=== PATIENT | female | born 1985 | race Caucasian/White ===

== ENCOUNTER 2019-06-18 11:40 | Day surgery (SDC) | payer BC, SELFPAY ==
[2019-06-18] VITALS (9 sets, daily range): BP systolic 107–150; BP diastolic 65–93; PULSE 57–105; RESP 14–26; TEMP 36.3–36.7; O2SAT 93–99; BMI 33.3
--- NOTE | ~2019-06-18 | US_ITS ---
EXAMINATION: US OB <= 14 weeks fetus EXAM DATE: 06/18/2019 13:48 INDICATION: , vaginal bleeding. First trimester. TECHNIQUE: Pelvic obstetrical transabdominal sonogram was performed by a technologist. There are mu ltiple grayscale and Doppler images available for interpretation. There are no earlier studies of th is gestation for comparison. FINDINGS: Uterus measures 8.9 x 5.5 x 6.1 cm and is retroverted with endometrium measuring 5-10 mm in thickness depending on location of measurement. There is small cystic region in the lower uterine se gment, possible gestation sac, with hypoechoic adjacent region which could be subchorionic hemorrhage . No yolk sac or pole was confirmed. Poor prognostic indicators for this . The ovaries are morphologically normal. IMPRESSION: Lower uterine segment small anechoic region and adjacent hypoechoic region could be gest ation sac, subchorionic hemorrhage respectively. Poor prognostic indicators for this . Consi zaire follow-up beta hCG levels or ultrasound as indicated clinically. Reviewed, dictated and finalized at location A. [facility] IMPRESSION: Lower uterine segment small anechoic region and adjacent hypoechoi c region could be gestation sac, subchorionic hemorrhage respectively. Poor pro gnostic indicators for this . Consider follow-up beta hCG levels or ul trasound as indicated clinically.
[2019-06-18 12:06] LABS: Basophils Absolute Auto 0.1 K/mm3 (0.0-0.1); Basophils Percent Auto 0.6 % (0.2-1.2); Eosinophils Absolute Auto 0.1 K/mm3 (0-0.3); Eosinophils Percent Auto 1.1 % (0-4.4); Hematocrit 42.5 % (37.0-47.0); Hemoglobin 14.3 g/dL (12.0-15.0); Immature Granulocyte Absolute 0.04 K/mm3 (0.00-0.031); Immature Granulocyte Percent A 0.4 % (0-0.5); Lymphocytes Absolute Auto 3.11 K/mm3 (0.9-3.2); Lymphocytes Percent Auto 28.7 % (18.3-44.2); Mean Corpuscular HGB Conc 33.6 g/dl (32-36); Mean Corpuscular Hemoglobin 32.4 pg (26-34); Mean Corpuscular Volume 96.4 fl (80-100); Mean Platelet Volume 10.2 fl (7.4-10.4); Monocytes Absolute Auto 0.6 K/mm3 (0.1-0.6); Monocytes Percent Auto 5.9 % (2.6-8.5); Neutrophils Absolute Auto 6.9 K/mm3 (1.3-6.7); Neutrophils Percent Auto 63.3 % (45.5-73.1); Platelet Count Result 269 k/mm3 (150-375); Red Blood Count 4.41 M/mm3 (4.2-5.4); Red Cell Distribution Width 13.2 % (11.5-14.5); White Blood Count 10.8 K/mm3 (4.5-10.0)
--- NOTE | 2019-06-18 12:46 | ED.FEMALEGU ---
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 She states that she has had a prior miscarriage and believes she is having another one. She reports that she followed up with her [employer]ISTANT MANA[employer] MANAG[employer] today, Dr. Akers, who sent her here because they believe that she needs a D&C. She notes associated intermittent suprapubic cramping ABD pain and dizziness. She also notes that she had a + at home test 3 days ago and another + test at the [employer]'s today. She denies any N/V/D, fevers, chills, SOB, or CP. MD elicited complaint: vaginal bleeding (heavy with large clots) Pertinent past history: prior miscarriages Onset (ago): day(s) (2) Location of symptoms: vaginal Female Urogenital Radiation: Suprapubic Quality of pain: cramping Consistency: intermittent Vaginal bleeding: heavy and clots (large) Associated symptoms: abdominal pain (intermittent suprapubic cramping) and other (dizziness) Patient : Yes Possible : at home test positive Related Data : 4 Para: 2 Total number of abortions (spontaneous and elective): 1 Allergies Allergy/AdvReac Type Severity Reaction Status Date / Time No Known Allergies Allergy Unknown Unverified 09/02/18 17:29 Review of Systems Review of Systems: All systems reviewed & are unremarkable except as noted in HPI and below Constitutional: Constitutional: Denies chills and Denies fever(s) Cardiovascular: Cardiovascular: Denies chest pain Respiratory: Respiratory: Denies dyspnea Gastrointestinal: Gastrointestinal: Reports abdominal pain (intermittent suprapubic cramping), Denies diarrhea, Denies nausea and Denies vomiting Genitourinary: Genitourinary: Reports abnormal vaginal bleeding (heavy with large clots) Neurologic: Reports dizziness PMFSH Past Medical History Medical History (Updated 06/18/19 @ 15:13 by Kiersten Upton MD) History of miscarriage MS (multiple sclerosis) Surgical History Surgical History (Updated 06/18/19 @ 13:26 by Wu Olivares) History of cholecystectomy Social History Social History (Updated 06/18/19 @ 13:27 by Wu Olivares) Smoking packs per day: 1 Smoking cigarettes per day: 20.0 Smoking status: Current every day smoker Tobacco type: cigarettes Comments PCP: PEDRO Macias. Exam Const: General: cooperative, no acute distress and alert Nutritional Appearance: well nourished Orientation/consciousness: patient oriented x3 Limitations: no limitations HENMT: Mouth: Yes lip normal and Yes moist mucous membranes Resp: Effort & Inspection: normal respiratory effort Auscultation: clear to auscultation bilaterally Cardio: Rate: regular rate Rhythm: regular rhythm GI: GI Palp: Yes Soft to palpation and Yes Tenderness to palpation present (GI) (LLQ and rt mid) Auscultation: normal bowel sounds : Speculum Exam - Vagina: vaginal bleeding (With small clots) and No tissue present in vagina Speculum Exam - Cervix: Cervical os open (With small clot present) Skin: General skin exam: normal color Neuro: General: patient oriented x3 Cognition (Neuro): normal cognition Speech: normal speech Extrem: General: normal to inspection, full ROM and no clubbing, cyanosis or edema Psych: Mental Status: mental status grossly normal Affect: normal affect Attitude: cooperative Course Course Emergency Course: Patient presents with findings consistent with incomplete spontaneous . Patient hemodynamically stable without significant hemorrhaging noted in the emergency department. Patient reportedly had heavier bleeding at [employer]ISTORY [employer]ACULTY MEMBER office. HISTORY FACULTY MEMBER did evaluate
--- NOTE | 2019-06-18 15:06 | PM.IMHP ---
H&P: HPI History of Present Illness Chief complaint: incomplete misscarriage, vaginal bleeding Narrative: Jessica Nova is a 34 year old female initially presented to the clinic with positive test and vaginal bleeding for 3 days. She was examined in clinic and cervix was noted to be dilated with blood cots and tissue within the vaginal vault. She was sent to the ER for further evaluation. Review of Systems Constitutional: Constitutional: Denies chills, Denies fatigue and Denies weakness Cardiovascular: Cardiovascular: Denies chest pain and Denies palpitations Respiratory: Respiratory: Denies dyspnea and Denies dyspnea on exertion Gastrointestinal: Gastrointestinal: Denies abdominal pain Genitourinary: Comments: vaginal bleeding Neurologic: Denies confusion, Denies headache(s) and Denies numbness Psychiatric: Psychiatric: Reports no additional psychiatric complaints [facility] Past Medical History Medical History (Updated 06/18/19 @ 15:11 by Maddie Carr DO) History of miscarriage MS (multiple sclerosis) Surgical History Surgical History (Updated 06/18/19 @ 13:26 by Wu Olivares) History of cholecystectomy Social History Social History (Updated 06/18/19 @ 13:27 by Wu Olivares) Smoking packs per day: 1 Smoking cigarettes per day: 20.0 Smoking status: Current every day smoker Tobacco type: cigarettes Meds Home Medications and Allergies Allergies Allergy/AdvReac Type Severity Reaction Status Date / Time No Known Allergies Allergy Unknown Unverified 09/02/18 17:29 Vital Signs Vital Signs - 24 hr 06/18/19 11:48 06/18/19 13:53 06/18/19 13:55 Temperature 36.7 C Pulse Rate 70 58 L 70 Respiratory Rate 16 Blood Pressure 150/91 H 128/78 119/82 Pulse Oximetry 99 Exam Const: General: comfortable; No no acute distress or in distress Resp: Effort & Inspection: normal respiratory effort Auscultation: clear to auscultation bilaterally Cardio: Rate: regular rate Rhythm: regular rhythm GI: Inspection: non-distended GI Palp: Yes Soft to palpation and No Tenderness to palpation present (GI) : Other: cervix dilated Neuro: Speech: normal speech Psych: Mental Status: mental status grossly normal Affect: normal affect H&P: Results Labs Labs: Short CBC 06/18/19 Range/Units 11:53 WBC 10.8 H (4.5-10.0) K/mm3 Hgb 14.3 (12.0-15.0) g/dL Hct 42.5 (37.0-47.0) % Plt Count 269 (150-375) k/mm3 Imaging US pelvis: Radiologist's impression: FINDINGS: Uterus measures 8.9 x 5.5 x 6.1 cm and is retroverted with endometrium measuring 5-10 mm in thickness depending on location of measurement. There is small cystic region in the lower uterine segment, possible gestation sac, with hypoechoic adjacent region which could be subchorionic hemorrhage. No yolk sac or pole was confirmed. Poor prognostic indicators for this . The ovaries are morphologically normal. IMPRESSION: Lower uterine segment small anechoic region and adjacent hypoechoic region could be gestation sac, subchorionic hemorrhage respectively. Poor prognostic indicators for this . Consider follow-up beta hCG levels or ultrasound as indicated clinically. Assessment and Plan Assessment and plan (1) Incomplete miscarriage: Code(s): O03.4 - Incomplete spontaneous without complication Status: Acute Assessment and Plan: To OR for Suction D&C Risks, benefits, alternatives discussed. Patient would like to proceed with procedure.
--- NOTE | 2019-06-18 15:17 | PC.NURSE ---
to pre-op area via wheelchair. vitals stable. no active vaginal bleeding. valuables given to pt
--- NOTE | 2019-06-18 15:25 | WPDANESEPPF ---
Anes - Initial Pre Proc Eval Procedure: Operation Date: 06/18/19 15:30 Proposed Procedures p SUCTION DILITATION AND CURETTAGE - Maddie Carr DO Date/Time: 06/18/19 15:25 Surgeon: Maddie Carr DO Pre Op Diagnosis: incomplete misscarriage, vaginal bleeding Patient Data Age: 34 Gender: F Height: 5 ft 4 in Weight: 88 kg Last Vital Signs Temp 36.7 C 06/18/19 11:48 Pulse 70 06/18/19 13:55 Resp 16 06/18/19 11:48 BP 119/82 06/18/19 13:55 Pulse Ox 99 06/18/19 11:48 Allergies Allergy/AdvReac Type Severity Reaction Status Date / Time No Known Allergies Allergy Unknown Unverified 09/02/18 17:29 Laboratory Tests 06/18/19 06/18/19 06/18/19 11:53 11:53 11:53 WBC 10.8 K/mm3 H K/mm3 (4.5-10.0) RBC 4.41 M/mm3 M/mm3 (4.2-5.4) Hgb 14.3 g/dL g/dL (12.0-15.0) Hct 42.5 % % (37.0-47.0) MCV 96.4 fl fl (80-100) MCH 32.4 pg pg (26-34) MCHC 33.6 g/dl g/dl (32-36) RDW 13.2 % % (11.5-14.5) Plt Count 269 k/mm3 k/mm3 (150-375) MPV 10.2 fl fl (7.4-10.4) Immature Gran % (Auto) 0.4 % % (0-0.5) Neut % (Auto) 63.3 % % (45.5-73.1) Lymph % (Auto) 28.7 % % (18.3-44.2) [place] % (Auto) 5.9 % % (2.6-8.5) Eos % (Auto) 1.1 % % (0-4.4) Baso % (Auto) 0.6 % % (0.2-1.2) Lymph # (Auto) 3.11 K/mm3 K/mm3 (0.9-3.2) [place] # (Auto) 0.6 K/mm3 K/mm3 (0.1-0.6) Eos # (Auto) 0.1 K/mm3 K/mm3 (0-0.3) Baso # (Auto) 0.1 K/mm3 K/mm3 (0.0-0.1) Abs Immat Gran (auto) 0.04 K/mm3 H K/mm3 (0.00-0.031) Absolute Neuts (auto) 6.9 K/mm3 H K/mm3 (1.3-6.7) Absolute Nucleated RBC 0.0 K/mm3 K/mm3 (0.0-0.012) Nucleated RBC % 0.0 % % (0.0-0.2) Beta HCG, Quant 2010.10 mIU/ML mIU/ML Blood Type A Positive Doses of RhIg Required 0 Patient hx anesthesia problems: none Family hx anesthesia problems: none [facility] Past Medical History Medical History History of miscarriage MS (multiple sclerosis) Surgical History Surgical History History of cholecystectomy Social History Social History Smoking packs per day: 1 Smoking cigarettes per day: 20.0 Smoking status: Current every day smoker Tobacco type: cigarettes Anes - Eval Final PreProcedure Day of Procedure 06/18/19 15:25 Patient weight: obese Heart: regular rate and rhythm Lungs: clear to auscultation Airway: Mallampati scale class 1 Neurological: alert and oriented Last oral intake: 6 hours ASA classification: II Emergent: yes Anesthetic plan: proceed Anesthesia type and monitoring: general ETT and standard monitoring Informed Consent: The patient's anesthetic plan and its attendant risks and benefits were discussed with the patient/family/POA. Questions were solicited and answers provided to the satisfaction of the patient/family/POA.
[2019-06-18] MEDS: LACTATED RINGERS 1,000 ML 30 ML IV CONT (15:30)
--- NOTE | 2019-06-18 15:46 | SUR.PREOP ---
1540; [employer] CAPTAIN CALLED DR ESQUIVEL. VERBAL ORDER FOR CONSENT GIVEN.
--- NOTE | 2019-06-18 18:42 | OP_ITS ---
DATE OF PROCEDURE: 06/18/2019 PROCEDURE: Suction dilation and curettage. PREOPERATIVE DIAGNOSIS: Incomplete . POSTOPERATIVE DIAGNOSIS: Incomplete . ANESTHESIA: General sedation. ESTIMATED BLOOD LOSS: 50 mL. SPECIMEN: Retained products of conception. FINDINGS: Open cervix and products of conception. INDICATION FOR PROCEDURE: A 34-year-old with newly positive test, initially presented to the clinic with complaints of vaginal bleeding, passing clots on exam in the clinic. In the vaginal wall, there were noted to be blood clots, bleeding as well as some tissue. At this point, the patient was transferred to the ER for further evaluation. Ultrasound showed retained products at the lower uterine segment on exam. Cervix was noted to be dilated. At this point, risks, benefits, and alternatives discussed with the patient. Decision made to proceed with procedure. DESCRIPTION OF PROCEDURE: The patient was moved to the OR, where she was moved to the OR table. After adequate anesthesia was established, the patient was placed in Pee stirrups for support. The patient's vagina was prepped using Betadine and the patient was draped in the usual sterile fashion. A time-out was performed to identify the correct patient and procedure. Speculum was inserted into the vagina. Blood clots were noted and tissue protruding from the dilated cervical os. The uterus was sounded to 8 cm. A #10 suction curette was introduced into the uterine cavity. Suction device was turned on. Several passes of the suction curettage were performed until the uterus was found to be empty. At this point, good hemostasis was noted. Single-tooth tenaculum was removed. All instrumentation was removed from the vagina. The patient tolerated the procedure well, was transferred to the recovery room in stable condition. D I [facility]
== END 2019-06-18 17:35 | disposition home or self-care (01) ==
LOC: ANHED 12:41 → ANHSURGERY 14:59
PROVIDERS: Emergency Provider Emergency Medicine; PCP Physician Assistant; Visit Provider Obstetrics & Gynecology
PROC: (CPT 59812; principal; 2019-06-18 15:30)
DX: O03.4 Incomplete spontaneous abortion without complication (principal); G35 Multiple sclerosis; F17.210 Nicotine dependence, cigarettes, uncomplicated
CPT/HCPCS: 59812; 36415; 76801; 84702; 85025; 86900; 86901; 88305; 99285; A9270; J0330; J1100; J2250; J2405; J2704; J3010; J7120

== ENCOUNTER 2019-06-29 13:38 | Emergency (ER) | payer BC, SELFPAY ==
--- NOTE | 2019-06-29 13:51 | ED.URI ---
HPI - URI/Sore Throat General Chief Complaint: Upper Respiratory Infection Stated Complaint: can't take a full breath Time Seen by Provider: 06/29/19 13:51 Source: patient and RN notes reviewed Related Data Allergies Allergy/AdvReac Type Severity Reaction Status Date / Time No Known Allergies Allergy Unknown Verified 06/18/19 15:45 Review of Systems Review of Systems: Narrative: CONSTITUTIONAL: Denies fever, chills, or sweats. EYES: Denies visual changes, redness, or discharge. ENT: Denies rhinorrhea, congestion, sore throat, or otalgia. CARDIOVASCULAR: Denies chest pain, palpitations, or edema. RESPIRATORY: Denies cough or dyspnea. GASTROINTESTINAL: Denies abdominal pain, nausea, vomiting, or diarrhea. GENITOURINARY: Denies dysuria or hematuria. SKIN: Denies rash or itching. MUSCULOSKELETAL: Denies back pain, joint pain, or myalgia. NEUROLOGIC: Denies headache, numbness, or weakness. All other systems reviewed are negative, except as documented in HPI. PMFSH Social History Social History Smoking packs per day: 1 Smoking cigarettes per day: 20.0 Smoking status: Current every day smoker Tobacco type: cigarettes Comments At the time of my signature, I reviewed and agree with the nursing past medical, surgical, social, and family history. There is no relevant family history pertinent to the patient complaint. Exam Narrative: Exam Narrative: GENERAL: This is a well-nourished, well-developed patient, in no apparent distress. HEAD: normocephalic, atraumatic. EYES: PERRL. Sclera clear/white. Vision is grossly intact. EARS: External ears normal, auditory canals clear and without drainage, TMs normal without perforation. Hearing grossly intact. NOSE: External nose normal with no obvious nasal discharge, nares without redness, no rhinorrhea. THROAT: Mucous membranes moist, posterior pharynx clear. NECK: Neck supple, non-tender without lymphadenopathy, masses or thyromegaly. CARDIOVASCULAR: Regular rate and rhythm without murmurs, gallops, or rubs. RESPIRATORY: Clear to auscultation. Breath sounds equal bilaterally. No wheezes, rales, or rhonchi. SKIN: warm, intact with no suspicious lesions or rash, good texture and turgor. NEURO: awake, alert, and oriented to person, place and time. There were no obvious focal neurologic abnormalities. EXTREMITIES: No clubbing, cyanosis, or edema. MDM - URI/Sore Throat Differential Diagnosis Differential diagnosis: Likely upper respiratory infection, otitis media, sinusitis, viral infection, bronchitis, influenza and pharyngitis Critical Care Time Critical Care Time Critical Care Time: No Discharge Plan Discharge Prescriptions: No Action ibuprofen 800 mg tablet 800 mg PO TID PRN (Reason: pain) Qty: 60 RF: 0 doxycycline hyclate 100 mg capsule 100 mg PO BID 7 Days Qty: 14 RF: 0
== END 2019-06-29 14:00 | disposition left against medical advice (07) ==
LOC: EXPBETH 13:46
PROVIDERS: Emergency Provider Nurse Practitioner Family
DX: Z53.21 Procedure and treatment not carried out due to patient leaving prior to being seen by health care provider (principal)
CPT/HCPCS: 99199

== ENCOUNTER 2019-06-29 14:24 | Emergency (ER) | payer BC, SELFPAY ==
--- NOTE | ~2019-06-29 | US_ITS ---
EXAMINATION: US venous doppler [facility] DATE: 06/29/2019 16:00 INDICATION: Lower limb swelling. TECHNIQUE: Grayscale ultrasound images without and with compression and Doppler ultrasound images of the bilateral lower extremity veins were obtained. COMPARISON: None. FINDINGS: The visualized portions of right common femoral vein, profunda (deep) femoral vein, femoral vein, pop liteal vein, peroneal veins, posterior tibial veins, and greater saphenous vein outflow are patent. The visualized portions of left common femoral vein, profunda femoral vein, femoral vein, popliteal v ein, peroneal veins, posterior tibial veins, and greater saphenous vein outflow are patent. IMPRESSION: 1. No deep venous thrombosis. Reviewed, dictated and finalized at location A. [employer]
--- NOTE | ~2019-06-29 | XR_ITS ---
EXAMINATION: XR chest 2V 06/29/2019 15:18 INDICATION: Chest pain after recent surgery PROCEDURE: 2 view chest COMPARISON: No prior studies for comparison. FINDINGS: The lungs are clear. The cardiomediastinal silhouette is within normal limits. There are no pleural effusions. There is no pneumothorax suspected. IMPRESSION: 1: NO ACUTE CARDIOPULMONARY DISEASE. Reviewed, dictated and finalized at location B. [employer]
[2019-06-29 14:28] VITALS: BP 167/74; PULSE 67; RESP 16; TEMP 36.8; O2SAT 100
--- NOTE | 2019-06-29 14:39 | ECG_ITS ---
Measurements Intervals [place] Rate: 65 P: 21 OR: 122 QRS: 28 QRSD: 126 T: -6 QT: 439 QTc: 458 Interpretive Statements SINUS RHYTHM WITH SINUS ARRHYTHMIA INTRAVENTRICULAR CONDUCTION DELAY DELAYED PRECORDIAL R/S TRANSITION BORDERLINE T WAVE ABNORMALITY- INFERIOR LEADS BASELINE ARTIFACT- II, III, V3-V4 BORDERLINE ECG Electronically Signed On 06-30-2019 9:24:55 WIRE DRAWING MACHINE TENDER by Abraham Javier D.O.
[2019-06-29 15:12] LABS: Basophils Absolute Auto 0.1 K/mm3 (0.0-0.1); Basophils Percent Auto 0.6 % (0.2-1.2); Eosinophils Absolute Auto 0.1 K/mm3 (0-0.3); Eosinophils Percent Auto 1.4 % (0-4.4); Hematocrit 35.6 % (37.0-47.0); Hemoglobin 11.8 g/dL (12.0-15.0); Immature Granulocyte Absolute 0.03 K/mm3 (0.00-0.031); Immature Granulocyte Percent A 0.4 % (0-0.5); Lymphocytes Absolute Auto 2.77 K/mm3 (0.9-3.2); Lymphocytes Percent Auto 32.9 % (18.3-44.2); Mean Corpuscular HGB Conc 33.1 g/dl (32-36); Mean Corpuscular Hemoglobin 32.7 pg (26-34); Mean Corpuscular Volume 98.6 fl (80-100); Mean Platelet Volume 10.3 fl (7.4-10.4); Monocytes Absolute Auto 0.6 K/mm3 (0.1-0.6); Monocytes Percent Auto 6.7 % (2.6-8.5); Neutrophils Absolute Auto 4.9 K/mm3 (1.3-6.7); Platelet Count Result 301 k/mm3 (150-375); Red Blood Count 3.61 M/mm3 (4.2-5.4); Red Cell Distribution Width 14.3 % (11.5-14.5); White Blood Count 8.4 K/mm3 (4.5-10.0)
[2019-06-29 15:23] LABS: Alanine Aminotransferase 19 U/L (4-35); Albumin Level 4.1 g/dL (3.5-5.1); Alkaline Phosphatase 83 U/L (38-126); Aspartate Amino Transferase 21 U/L (14-36); Bilirubin,Total 0.3 mg/dL (0.2-1.3); Blood Urea Nitrogen 12 mg/dL (7-17); Calcium 9.2 mg/dL (8.4-10.2); Carbon Dioxide 25 mmol/L (22-30); Chloride 105 mmol/L (98-107); Estimated CRCL calculation 69 ml/min; Estimated Glomerular Filt Rate 57; Glucose 91 mg/dL (65-105); INR 0.9; Potassium 3.6 mmol/L (3.4-5.0); Prothrombin Time 12.3 Seconds (11.1-14.7); Sodium 138 mmol/L (137-145)
[2019-06-29 15:24] LABS: Partial Thromboplastin Time 25.2 SECONDS (22.3-36.8)
--- NOTE | 2019-06-29 15:28 | ED.CHESTPAIN ---
HPI - Chest Pain General Chief Complaint: Chest Pain <Keyonna Burroughs PA-C - Last Filed: 06/29/19 19:00> Stated Complaint: Chest Pain/SOB <Keyonna Burroughs PA-C - Last Filed: 06/29/19 19:00> Time Seen by Provider: 06/29/19 14:36 <PEDRO Madrigal Last Filed: 06/29/19 19:00> Source: patient <Keyonna Burroughs PA-C - Last Filed: 06/29/19 19:00> Mode of arrival: ambulatory <PEDRO Madrigal Last Filed: 06/29/19 19:00> Limitations: no limitations <PEDRO Madrigal Last Filed: 06/29/19 19:00> History of Present Illness HPI narrative: This is a 34 year old female that presents to the ER for chest pain x 1.5 weeks. Reports she had a d/c on the of last month. Reports since she has been having intermittent chest pressure. Reports today the pain has been more constant. Reports the pain is substernal and on the right side of her chest. Also reports some pain in her RUQ. Reports she also had had some swelling in her bilateral lower extremities. Denies fever, cold symptoms, nausea, vomiting, or dysuria. <Keyonna Burroughs PA-C - Last Filed: 06/29/19 19:00> Related Data Allergies/Adverse Reactions: Allergies Allergy/AdvReac Type Severity Reaction Status Date / Time No Known Allergies Allergy Unknown Verified 06/29/19 14:39 <Keyonna Burroughs PA-C - Last Filed: 06/29/19 19:00> Review of Systems Review of Systems: Narrative: CONSTITUTIONAL: Denies fever ENT: Denies rhinorrhea, congestion, sore throat CARDIOVASCULAR: Reports chest pain, edema. RESPIRATORY: Denies cough or dyspnea. GASTROINTESTINAL: Reports abdominal pain. Denies nausea, vomiting, or diarrhea. GENITOURINARY: Denies dysuria or hematuria. <Keyonna Burroughs PA-C - Last Filed: 06/29/19 19:00> All systems reviewed & are unremarkable except as noted in HPI and below <PEDRO Madrigal Last Filed: 06/29/19 19:00> [facility] Social History Social History: Social History Smoking packs per day: 1 Smoking cigarettes per day: 20.0 Smoking status: Current every day smoker Tobacco type: cigarettes Gender identity (if verbalized by the patient): Female <Keyonna Burroughs PA-C - Last Filed: 06/29/19 19:00> Exam Narrative: Exam Narrative: GENERAL: Well-appearing, obese, and in no acute distress. HEAD: Normocephalic, atraumatic. EYES: EOMI. ENT: Nares clear, no rhinorrhea or epistaxis. Mucous membranes moist. Oropharynx without tonsillar hypertrophy exudate or other lesions. Bilateral TMs pearly dudley non-bulging NECK: Supple. No adenopathy or masses. CHEST: Clear to auscultation. No respiratory distress. No wheezes rales or rhonchi HEART: Regular rate and rhythm. No murmur heard. Normal peripheral pulses. ABDOMEN: Soft, nontender, nondistended, normal active bowel sounds. EXTREMITIES: Normal range of motion. No edema. SKIN: Warm, dry, no rash. NEURO: No focal deficits. Alert and oriented x3. PSYCH: Normal mood and affect <Keyonna Burroughs PA-C - Last Filed: 06/29/19 19:00> Course Consultations Consultation #1: Spoke with primary care doctor about patient work-up will follow-up in clinic <Keyonna Burroughs PA-C - Last Filed: 06/29/19 19:00> Date: 06/29/19 <PEDRO Madrigal Last Filed: 06/29/19 19:00> Time: 18:58 <PEDRO Madrigal Last Filed: 06/29/19 19:00> Vital Signs Vital signs: Vital Signs Temperature 36.8 C 06/29/19 14:28 Pulse Rate 67 06/29/19 14:28 Respiratory Rate 16 06/29/19 14:28 Blood Pressure 167/74 H 06/29/19 14:28 Pulse Oximetry 100 06/29/19 14:28 Temperature 36.8 C 06/29/19 14:28 Pulse Rate 80 06/29/19 18:33 Respiratory Rate 19 06/29/19 18:33 Blood Pressure 159/96 H 06/29/19 18:33 Pulse Oximetry 100 06/29/19 18:33 <Keyonna Burroughs PA-C - Last Filed: 06/29/19 19:00> Vital Signs Temperature 36.8 C 06/29/19 14:28 Pulse Rate 67
[2019-06-29 15:34] LABS: Troponin I < 0.012 ng/mL (0.000-0.034)
[2019-06-29 15:49] VITALS: BP 146/95; PULSE 68; RESP 18; O2SAT 100
[2019-06-29 15:50] VITALS: PULSE 60
[2019-06-29 16:42] LABS: D Dimer 0.29 ug/mL (<0.48)
[2019-06-29] MEDS: KETOROLAC 30 MG/ML VIAL (*BKC) IV PUSH (17:37)
[2019-06-29] MEDS: BELLADONNA ALK/PHENOB ELIX 10 ML, MAG HYDROX/ALUMINUM HYD/SIMETH 30 ML, LIDOCAINE HCL 2... PO (17:37)
[2019-06-29 18:22] LABS: Troponin I < 0.012 ng/mL (0.000-0.034)
[2019-06-29 18:33] VITALS: BP 159/96; PULSE 80; RESP 19; O2SAT 100
== END 2019-06-29 19:14 | disposition home or self-care (01) ==
PROVIDERS: Physician Assistant; Emergency Provider Emergency Medicine
DX: R07.9 Chest pain, unspecified (principal); F17.210 Nicotine dependence, cigarettes, uncomplicated
CPT/HCPCS: 36415; 71046; 80053; 81025; 84484; 85025; 85380; 85610; 85730; 93005; 93970; 96374; 99284; A9270; J1885

== ENCOUNTER 2020-04-06 06:54 | Outpatient (NON) | payer BC, SELFPAY ==
[2020-04-07 16:06] LABS: SARS-CoV-2 RNA PCR Positive
== END 2020-04-06 06:55 ==
LOC: ANHCOVIDDT 06:55
PROVIDERS: Visit Provider Physician Assistant
DX: U07.1 COVID-19 (principal)
CPT/HCPCS: 87635; C9803; U0003

== ENCOUNTER 2021-11-17 00:32 | Day surgery (SDC) | payer BC, SELFPAY ==
[2021-11-07 09:25] VITALS: BMI 36.3
[2021-11-17 06:56] VITALS: BP 141/79; PULSE 62; RESP 17; TEMP 36.6; O2SAT 100
[2021-11-17] MEDS: LACTATED RINGERS 1,000 ML 150 ML IV CONT (07:08)
--- NOTE | 2021-11-17 07:13 | PM.HPGS ---
History of Present Illness History of Present Illness Consent: Risks, benefits, and alternatives have been discussed and questions answered. Patient agrees to proceed with procedure. Chief complaint: bright red blood per rectum, fecal abnormalities Narrative: Jessica Nova is a 36 year old female Referred for investigation of rectal bleeding. She has seen blood in her stools for a couple of years. The bleeding is intermittent. At times the toilet bowl will be filled with blood. She believes that she has hemorrhoids. She does not have rectal pain or abdominal pain when she sees blood. Her stools are inconsistent. She will become constipated that will also have than or narrow soft stools. She does not usually eat breakfast. There is no family history of colon cancer or other colon diseases. Review of Systems Review of Systems: All systems reviewed & are unremarkable except as noted in HPI and below PMFSH Past Medical History Medical History History of miscarriage MS (multiple sclerosis) Surgical History Surgical History History of cholecystectomy Social History Social History Smoking packs per day: 1.5 Smoking cigarettes per day: 30.0 Years smoked: 20 Smoking pack-years: 30.00 Smoking status: Current every day smoker Tobacco type: cigarettes Alcohol intake: current Drinks per week: 6 Substance use: never Substance use type: does not use Living arrangements: with family Gender identity (if verbalized by the patient): Female Spiritual care concerns: No Meds Home Medications and Allergies Home Medications Medication Instructions Recorded Confirmed Type doxycycline hyclate 100 mg capsule 100 mg PO BID 7 days #14 caps 06/18/19 11/07/21 Rx ibuprofen 800 mg tablet 800 mg PO TID PRN pain #60 tabs 06/18/19 11/07/21 Rx hydrochlorothiazide 12.5 mg tablet 12.5 tablet PO DAILY 11/07/21 11/07/21 History Allergies Allergy/AdvReac Type Severity Reaction Status Date / Time No Known Allergies Allergy Unknown Verified 11/17/21 06:55 Vital Signs Vital Signs - 24 hr 11/17/21 06:56 Temperature 36.6 C Pulse Rate 62 Respiratory Rate 17 Blood Pressure 141/79 H Pulse Oximetry 100 Oxygen Delivery Room Air Exam Const: General: alert Orientation/consciousness: patient oriented x3 Resp: Auscultation: clear to auscultation bilaterally Cardio: Rhythm: regular rhythm GI: GI Palp: Yes Soft to palpation and No Tenderness to palpation present (GI) Neuro: General: patient oriented x3 Assessment and Plan Assessment and plan (1) Blood in stool: Code(s): K92.1 - Melena Status: Acute Assessment and Plan: Colonoscopy with possible biopsy or polypectomy or cautery or injection of substances.
--- NOTE | 2021-11-17 07:38 | WPDANESEPPF ---
Anes - Initial Pre Proc Eval Procedure: Operation Date: 11/17/21 08:00 Proposed Procedures p Colonoscopy - Matthew Baugh MD Date/Time: 11/17/21 07:38 Surgeon: Matthew Baugh MD Pre Op Diagnosis: bright red blood per rectum, fecal abnormalities Patient Data Age: 36 Gender: F Height: 1.6 m Weight: 91.4 kg Last Vital Signs Temp 36.6 C 11/17/21 06:56 Pulse 62 11/17/21 06:56 Resp 17 11/17/21 06:56 BP 141/79 H 11/17/21 06:56 Pulse Ox 100 11/17/21 06:56 O2 Del Method Room Air 11/17/21 06:56 Allergies Allergy/AdvReac Type Severity Reaction Status Date / Time No Known Allergies Allergy Unknown Verified 11/17/21 06:55 Home Medications Medication Instructions Recorded Confirmed Type doxycycline hyclate 100 mg capsule 100 mg PO BID 7 days #14 caps 06/18/19 11/07/21 Rx ibuprofen 800 mg tablet 800 mg PO TID PRN pain #60 tabs 06/18/19 11/07/21 Rx hydrochlorothiazide 12.5 mg tablet 12.5 tablet PO DAILY 11/07/21 11/07/21 History Patient hx anesthesia problems: none Family hx anesthesia problems: none Results Review: All pre-operative results and documents have been reviewed as part of the pre-operative evaluation. [facility] Past Medical History Medical History Anxiety Arthritis Hypertension MS (multiple sclerosis) Surgical History Surgical History History of cholecystectomy Social History Social History Smoking packs per day: 1.5 Smoking cigarettes per day: 30.0 Years smoked: 20 Smoking pack-years: 30.00 Smoking status: Current every day smoker Tobacco type: cigarettes Alcohol intake: current Drinks per week: 6 Substance use: never Substance use type: does not use Living arrangements: with family Gender identity (if verbalized by the patient): Female Spiritual care concerns: No Anes - Eval Final PreProcedure Day of Procedure 11/17/21 07:38 Patient weight: obese Heart: regular rate and rhythm Lungs: decreased breath sounds Airway: Mallampati scale class II Neurological: alert and oriented Last oral intake: >/= 8 hours ASA classification: III Emergent: no Anesthetic plan: proceed Anesthesia type and monitoring: general GIVS and standard monitoring Results Review: All pre-operative results and documents have been reviewed as part of the pre-operative evaluation. Informed Consent: The patient's anesthetic plan and its attendant risks and benefits were discussed with the patient/family/POA. Questions were solicited and answers provided to the satisfaction of the patient/family/POA.
[2021-11-17 08:04] VITALS: BP 104/75; PULSE 59; RESP 19; O2SAT 96
[2021-11-17 08:14] VITALS: BP 112/71; PULSE 55; RESP 20; O2SAT 98
[2021-11-17 08:24] VITALS: BP 121/80; PULSE 54; RESP 21; O2SAT 99
== END 2021-11-17 08:31 | disposition home or self-care (01) ==
PROVIDERS: PCP Physician Assistant; Visit Provider Internal Medicine Gastroenterology
PROC: 0DJD8ZZ Inspection of Lower Intestinal Tract, Via Natural or Artificial Opening Endoscopic (ICD-10-PCS; CPT 45378; principal; 2021-11-17 08:00)
DX: Z12.11 Encounter for screening for malignant neoplasm of colon (principal); K64.8 Other hemorrhoids; K64.4 Residual hemorrhoidal skin tags; K92.1 Melena; F41.9 Anxiety disorder, unspecified; M19.90 Unspecified osteoarthritis, unspecified site; I10 Essential (primary) hypertension; G35 Multiple sclerosis; E66.9 Obesity, unspecified; Z68.35 Body mass index [BMI] 35.0-35.9, adult; Z90.49 Acquired absence of other specified parts of digestive tract; F17.210 Nicotine dependence, cigarettes, uncomplicated
CPT/HCPCS: 45378; J2704; J7120

== ENCOUNTER 2022-01-15 09:47 | Emergency (ER) | payer BC, SELFPAY ==
--- NOTE | 2022-01-15 09:50 | ED.URI ---
HPI - URI/Sore Throat General Chief Complaint: Upper Respiratory Infection Stated Complaint: Fever/Cough Time Seen by Provider: 01/15/22 09:51 Source: patient and RN notes reviewed History of Present Illness HPI Narrative: Patient is a 36-year-old female who presents the urgent care with complaints of a fever and cough. Patient states that the cough is been ongoing for approximately a week and a half and her fever started on Saturday with body aches. Patient has been taking 800 mg ibuprofen for her symptoms. Denies any ill exposures. Denies of any nausea or vomiting. No other acute complaints. No acute distress noted. Patient read the plan of care. Some parts of this dictation were generated by voice recognition software and may contain typographical and/or grammatical inaccuracies. Related Data Home Medications Medication Instructions Recorded Confirmed hydrochlorothiazide 12.5 mg tablet 12.5 tablet PO DAILY 11/07/21 11/07/21 ergocalciferol (vitamin D2) 1,250 1,250 mcg PO WEEKLY 01/15/22 01/15/22 mcg (50,000 unit) capsule Allergies Allergy/AdvReac Type Severity Reaction Status Date / Time No Known Allergies Allergy Unknown Verified 01/15/22 10:01 Review of Systems Review of Systems: CONSTITUTIONAL: Reports a fever EYES: Denies visual changes, redness, or discharge. ENT: Reports a mild sore throat CARDIOVASCULAR: Denies chest pain, palpitations, or edema. RESPIRATORY: Reports of cough without dyspnea GASTROINTESTINAL: Denies abdominal pain, nausea, vomiting, or diarrhea. GENITOURINARY: Denies dysuria or hematuria. SKIN: Denies rash or itching. MUSCULOSKELETAL: Denies back pain, joint pain, or myalgia. NEUROLOGIC: Denies headache, numbness, or weakness. All other systems reviewed are negative, except as documented in HPI. [facility] Past Medical History Medical History Anxiety Arthritis Hypertension MS (multiple sclerosis) Surgical History Surgical History History of cholecystectomy Social History Social History Smoking packs per day: 1.5 Smoking cigarettes per day: 30.0 Years smoked: 20 Smoking pack-years: 30.00 Smoking status: Current every day smoker Tobacco type: cigarettes Alcohol intake: current Drinks per week: 6 Substance use: never Substance use type: does not use Gender identity (if verbalized by the patient): Female Spiritual care concerns: No Comments At the time of my signature, I reviewed and agree with the nursing past medical, surgical, social, and family history. There is no relevant family history pertinent to the patient complaint. Exam Narrative: GENERAL: This is a well-nourished, well-developed patient, in no apparent distress. HEAD: normocephalic, atraumatic. EYES: PERRL. Sclera clear/white. Vision is grossly intact. EARS: External ears normal, auditory canals clear and without drainage, TMs normal without perforation. Hearing grossly intact. NOSE: External nose normal with no obvious nasal discharge, nares without redness, no rhinorrhea. THROAT: Mucous membranes moist, moderate erythema noted posterior pharynx with moderate postnasal drainage NECK: Neck supple, non-tender without lymphadenopathy CARDIOVASCULAR: Regular rate and rhythm without murmurs, gallops, or rubs. RESPIRATORY: Clear to auscultation. Breath sounds equal bilaterally. No wheezes, rales, or rhonchi. GASTROINTESTINAL: Abdomen soft, non-tender, nondistended. Bowel sounds are active. No hepato-splenomegaly, or palpable masses. No guarding. SKIN: warm, intact with no suspicious lesions or rash, good texture and turgor. NEURO: awake, alert, and oriented to person, place and time. There were no obvious focal neurologic abnormalities. EXTREMITIES: No clubbing, cyanosis, or edema. Course Course Level of Care: Express Care V
[2022-01-15 09:52] VITALS: BP 150/87; PULSE 89; RESP 20; TEMP 38.3; O2SAT 99
[2022-01-15 21:15] LABS: SARS-CoV-2 RNA PCR Negative
== END 2022-01-15 10:25 | disposition home or self-care (01) ==
PROVIDERS: Emergency Provider Nurse Practitioner Family; PCP Physician Assistant
DX: B34.9 Viral infection, unspecified (principal); Z20.822 Contact with and (suspected) exposure to COVID-19; F17.210 Nicotine dependence, cigarettes, uncomplicated; M19.90 Unspecified osteoarthritis, unspecified site; I10 Essential (primary) hypertension; G35 Multiple sclerosis
CPT/HCPCS: 87081; 87804; 87880; 99213; C9803; G0463; U0003; U0005

== ENCOUNTER 2022-10-10 11:41 | Emergency (ER) | payer BC, SELFPAY ==
--- NOTE | 2022-10-10 20:00 | PC.NURSE ---
10/10/22 SEE DOWNTIME DOCUMENTATION. RG JORGE RN
== END 2022-10-10 13:30 | disposition home or self-care (01) ==
LOC: EXPBETH 19:42
PROVIDERS: Emergency Provider Nurse Practitioner Family
DX: L03.113 Cellulitis of right upper limb (principal)
CPT/HCPCS: 99213; G0463

== ENCOUNTER 2024-03-27 10:10 | Emergency (ER) | payer BC, SELFPAY ==
--- NOTE | 2024-03-27 10:22 | ED.URI ---
HPI - URI/Sore Throat General Chief Complaint: Upper Respiratory Infection Stated Complaint: Sore Throat History of Present Illness HPI Narrative: 39 y/o female presented for c/o sore throat and bilateral ear pressure. Onset last night. States pain is better today after taking arley seltzer. Reports new cough today. Smokes 1.5ppd. Denies cough, nasal congestion, n/v/d/f/c. Related Data Home Medications Medication Instructions Recorded Confirmed hydrochlorothiazide 12.5 mg tablet 12.5 tablet PO DAILY 11/07/21 03/27/24 ergocalciferol (vitamin D2) 1,250 1,250 mcg PO WEEKLY 01/15/22 03/27/24 mcg (50,000 unit) capsule Allergies Allergy/AdvReac Type Severity Reaction Status Date / Time No Known Allergies Allergy Unknown Verified 03/27/24 10:22 Review of Systems Review of Systems: CONSTITUTIONAL: Denies body aches, fever, chills, or sweats. EYES: Denies visual changes, redness, or discharge. ENT: reports sore throat ear pain Denies rhinorrhea, congestion. CARDIOVASCULAR: Denies chest pain, palpitations, or edema. RESPIRATORY: reports cough Denies dyspnea. GASTROINTESTINAL: Denies abdominal pain, nausea, vomiting, or diarrhea. SKIN: Denies rash, itching, or wounds. MUSCULOSKELETAL: Denies back pain, joint pain, or myalgia. NEUROLOGIC: Denies headache PMFSH Past Medical History Medical History Anxiety Arthritis Hypertension MS (multiple sclerosis) Vaginal discharge Surgical History Surgical History History of cholecystectomy History of gynecologic surgery suction d&C Social History Social History Smoking packs per day: 1.5 Smoking cigarettes per day: 30.0 Years smoked: 20 Smoking pack-years: 30.00 Smoking status: Current every day smoker Tobacco type: cigarettes Alcohol intake: current Drinks per week: 6 Substance use: never Substance use type: does not use Living arrangements: with family Occupation/Education: unemployed Gender identity (if verbalized by the patient): Female Sexual Orientation (if Verbalized by the Patient): Straight or Heterosexual Spiritual care concerns: No Exam Narrative: GENERAL: mildly Ill-appearing, no acute distress. EYES: conjunctivae clear ENT: Mucous membranes moist. Left TM pearly dudley with normal light reflex; right TM erythematous, bulging and intact; canal not erythematous, no drainage no tragal tenderness. Oropharynx erythematous without lesions. Tonsils not enlarged and without exudate. No drooling, no hoarseness, no trismus, uvula midline. No tripod positioning, hot potato voice, or soft palate swelling. NECK: Supple. No lymphadenopathy CHEST: Clear to auscultation, breath sounds equal. No respiratory distress, speaks in full sentences. HEART: Regular rate and rhythm. No murmur heard. SKIN: Warm, dry, no rash. NEURO: Alert and oriented x3. Course Course Emergency Course: Patient is aware of diagnosis, understands and agrees to treatment plan. Anticipatory guidance given. Patient agrees to follow-up as directed and is aware of reasons to seek care at the emergency department. Portions of this record may have been created with voice recognition software Level of Care: Express Care Visit MDM - URI/Sore Throat MDM Narrative Medical decision making narrative: Neg strep result reviewed with pt. Advise supportive treatments. Patient is appropriate for outpatient treatment and follow-up. Differential Diagnosis Differential diagnosis: Likely upper respiratory infection, otitis media, sinusitis, viral infection, influenza and pharyngitis Discharge Plan Discharge Clinical Impression: Otitis media Qualifiers: Otitis media type: suppurative Chronicity: acute Laterality: right Recurrence: non-recurrent Spontaneous tympanic membrane rupture: without spontaneous rupture Qualified Code(s): H66.001 - Acute suppurative otitis media without spontaneous rupture of ear drum, right ear Patient Disposition: Home, Self-Care Condition: Stable Instructions: Antibiotic Form, Ear Infection (ED) Additional Instructions: Rapid strep swab was negative today You will be notified in a few days if the culture comes back positive for strep. In the meantime, please monitor for worsening symptoms as you may be contagious. if symptoms are due to a viral illness, it is not treated with antibiotics. Viral symptoms can be present for up to 10-14 days. Take antibiotics as directed. Recommendations: antihistamine such as Benadryl, Zyrtec or Patricia for sinus congestion Flonase nasal spray, 1 spray in each nostril once daily until symptoms improve Symptomatic treatment includes: rest, fluids, and increase humidity of the air at home. Tylenol 1000mg every 8 hours as needed to reduce fever, pain Please schedule a follow-up visit with your personal physician within 3-5days. If your symptoms persist, change or worsen significantly, go to the emergency department for further evaluation. Prescriptions: New amoxicillin-pot clavulanate 875-125 mg tablet 1 tablet PO Q12H 7 Days Qty: 14 0RF No Action ergocalciferol (vitamin D2) 1,250 mcg (50,000 unit) capsule 1,250 mcg PO WEEKLY hydrochlorothiazide 12.5 mg tablet 12.5 tablet PO DAILY Follow-up/Referrals: Colleen,PEDRO Durant [Primary Care Provider] - Time of Disposition: 10:40
[2024-03-27 10:27] VITALS: BP 140/71; PULSE 52; RESP 17; TEMP 36.4; O2SAT 100
[2024-03-27 10:35] LABS: EDSTREPNEGPOS1 Negative (Negative)
== END 2024-03-27 10:46 | disposition home or self-care (01) ==
PROVIDERS: Emergency Provider Nurse Practitioner Family; PCP Physician Assistant
DX: H66.001 Acute suppurative otitis media without spontaneous rupture of ear drum, right ear (principal); F17.210 Nicotine dependence, cigarettes, uncomplicated; I10 Essential (primary) hypertension; G35 Multiple sclerosis; M19.90 Unspecified osteoarthritis, unspecified site
CPT/HCPCS: 87081; 87880; 99213; G0463

== ENCOUNTER 2024-10-14 08:16 | Outpatient (CLI) | payer BC, SELFPAY ==
--- OUTSIDE RECORDS SUMMARY | 2024-10-14 08:28 | XMS_ITS | Continuity of Care Document ---
Author Organization [facility] Address [address] [place] [address] [place] [address] Phone Care Team Providers Care Professional Benefits Sales Consultant Name Role Phone Alan LARSEN, Isaac Unavailable [...] Office/outpatient Visit, Est Office/outpatient Visit, [facility] [place] Advance Directives Directive Yes / No Effective Date File Name No Information Encounters Encounter Description Practice Location Reason(s) For Visit Diagnoses Date Provider Providers Copied on Encounter [facility], [address] [place] [address] [address], [place], [place], [id number], [place] tel:[phone] PIOTR Professional No Information 8 7 Alan Gray. [address] [facility] [place], [id number], [place]. tel:[phone] Referring Provider: Isaac Chu [address] [place] [place], [address] . tel:[phone] Office/outpat ient Visit, [facility], [address], [place], [place], [id number], tel:[phone] [place] Professional blurry vision (chief complaint) Retrobulbar neuritis, leftMS (multiple sclerosis) 0-201 6 Alan Gray. [address], [facility] [place], [id number], . tel:[phone] Referring Provider: Isaac Chu, [address] [place] [place], [address] . tel:[phone] Office/outpat ient Visit, [facility], [address], [place], [place], [id number], tel:[phone] [address] [place] Professional headache and foggy vision (chief complaint) Retrobulbar neuritis, left Jan-2 0-201 5 Annbecky Isaac. [address], [facility] [place], [place], [id number], . tel:[phone] Referring Provider: Isaac Chu, [address] [facility] [place], [address] . tel:[phone] Family History Family Member Type Diagnosis Age At Onset Maternal grandfather Problem (finding) Diabetes mellit us Payers Payer name Insurance type Covered alliance party ID Authoriza tion(s) No Information Social [...]
--- OUTSIDE RECORDS SUMMARY | 2024-10-14 08:28 | XMS_ITS | Data Portability ---
Author Organization [facility] [employer], Main Office Address [address] [place] [address] Assessment No assessment recorded. Plan of Treatment Reminders Order Date Submit Date Provider Last Modified By Organization Details Last Modified Time Details Appointments None recorded. Lab CBC w/ auto diff 2023 024 [employer] [facility], [address], [place], [address], 4 03:04:25 CMP, serum or plasma 2023 024 [employer] [facility], [address], [place], [address], 4 03:04:23 TSH + free T4, serum 2023 024 [employer] [facility], [address], [place], [address], 4 03:04:20 HbA1c (hemoglobin A1c), blood 2023 024 [employer] [facility], [address], [place], [address], 4 03:04:24 lipid panel, serum 2023 024 [employer] [facility], [address], [place], [address], 4 03:04:22 CBC w/ auto diff 06/21/ 2023 06/21/2 023 [email or web address] [facility], [address], [place], [address], 3 15:29:08 CMP, serum or plasma 2022 023 [email or web address] [facility], [address], [place], [address], 3 15:29:09 TSH + free T4, serum 2022 023 [email or web address] [facility], [address], [place], [address], 3 15:29:09 HbA1c (hemoglobin A1c), blood 2022 023 [email or web address] [facility], [address], [place], [address], 3 15:29:09 lipid panel, serum 2022 023 [email or web address] [facility], [address], [place], [address], 3 15:29:08 Referral None recorded. Procedures None recorded. Surgeries None recorded. Imaging MAMMO, screening, bilateral 2022 023 [facility] Not available 3 10:19:25 MRI, cervical spine, w/o contrast - No auth required per [employer] 2022 023 [facility] Not available 3 13:02:21 XR, cervical spine, 2 or 3 view 2022 023 [facility] Not available 3 13:58:14 Medication Orders prednisone 20 mg tablet 2023 024 [email or web address] [facility][id number], [address] [place], [address], 4 23:50:21 Patient TargetsNo targets recorded. Patient InstructionsNo instructions recorded. Reason for Referral None Reported. Results Created Date Observation Date Name Description Value Unit Range Abnormal Flag Note LastModifiedBy Organization Detail LastModifiedTime 03/19/2003/20/2022 CBC (INCL UDES DIFF/ PLT) white blood cell count 10.8 thous and/u L 3.8-10 .8 normal Not Available [facility] [address], [address], 03/20/2022 09:11:09 03/19/2003/20/2022 CBC (INCL UDES DIFF/ PLT) red blood cell count 5.01 jana on/uL 3.80-5 .10 normal Not Available [address], [address], 03/20/2022 09:11:09 03/19/20 22 03/20/2022 CBC (INCL UDES DIFF/ PLT) hemoglobin 16.3 g/dL 11.7-1 5.5 high Not Available [address], [address], 03/20/2022 09:11:09 03/19/2003/20/2022 CBC (INCL UDES DIFF/ PLT) hematocrit 47.4 % 35.0-4 5.0 high Not Available [address], [address], 03/20/2022 09:11:09 03/19/20 22 03/20/2022 CBC (INCL UDES DIFF/ PLT) MCV 94.6 fL 80.0-1 00.0 normal Not Available [facility] [address], [address], 03/20/2022 09:11:09 03/19/20 22 03/20/2022 CBC (INCL UDES DIFF/ PLT) MCH 32.5 pg 27.0-3 3.0 normal Not Available [address], [address], 03/20/2022 09:11:09 03/19/2003/20/2022 CBC (INCL UDES DIFF/ PLT) MCHC 34.4 g/dL 32.0-3 6.0 normal Not Available [address], [address], 03/20/2022 09:11:09 03/19/2003/20/2022 CBC (INCL UDES DIFF/ PLT) RDW 13.3 % 11.0-1 5.0 normal Not Available [address], [address], 03/20/2022 09:11:09 03/19/2003/20/2022 CBC (INCL UDES DIFF/ PLT) platelet count 321 thous and/u L 140-40 0 normal Not Available [address], [address], 03/20/2022 09:11:09 03/19/2003/20/2022 CBC (INCL UDES DIFF/ PLT) MPV 10.7 fL 7.5-12 .5 normal Not Available [address], [address], 03/20/2022 09:11:09 03/19/2003/20/2022 CBC (INCL UDES DIFF/ PLT) absolute neutrophils 7193 cells /uL 1500-7 800 normal Not Available [address], [address], 03/20/2022 09:11:09 03/19/2003/20/2022 CBC (INCL UDES DIFF/ PLT) absolute lymphocytes 2830 cells /uL 850-39 00 normal Not Available [address], [address], 03/20/2022 09:11:09 03/19/20 03/20/2022 CBC (INCL UDES DIFF/ PLT) absolute monocytes 562 cells /uL 200-95 0 normal Not Available [address], [address], 03/20/2022 09:11:09 03/19/20 22 03/20/2022 CBC (INCL UDES DIFF/ PLT) absolute eosinophils 173 cells /uL 15-500 normal Not Available [address], [address], 03/20/2022 09:11:09 03/19/2003/20/2022 CBC (INCL UDES DIFF/ PLT) absolute basophils 43 cells /uL 0-200 normal Not Available [address], [address], 03/20/2022 09:11:09 03/19/2003/20/2022 CBC (INCL UDES DIFF/ PLT) neutrophils 66.6 % normal Not Available [address], [address], 03/20/2022 09:11:09 03/19/2003/20/2022 CBC (INCL UDES DIFF/ PLT) lymphocytes 26.2 % normal Not Available [address], [address], 03/20/2022 09:11:09 03/19/2003/20/2022 CBC (INCL UDES DIFF/ PLT) monocytes 5.2 % normal Not Available [address], [address], 03/20/2022 09:11:09 03/19/2003/20/2022 CBC (INCL UDES DIFF/ PLT) eosinophils 1.6 % normal Not Available [address], [address], 03/20/2022 09:11:09 03/19/2003/2003/20/2022 CBC (INCL UDES DIFF/ PLT) basophils 0.4 % normal Not Available [facility] [address] [place], [address], 03/20/2022 09:11:09 03/19/20 22 03/20/2022 VITAM IN D,25- OH,TO MARISELA,I A vitamin D,25-oh,tota l,ia 68 NG/mL 30-100 normal Vitam in D Statu s 25-OH Vitam in D: Defic iency : <20 ng/mL Insuf ficie ncy: 20 - 29 ng/mL Optim al: > or = 30 ng/mL For 25-OH Vitam in D testi ng on patie nts on D2-saab pplem entat ion and patie nts for whom quant itati on of D2 and D3 fract ions is requi red, the [facility] e[facility](TM ) 25-OH VIT D, (D2,D 3), LC/MS /MS is recom kathryn d: order code [id number] (kari ents >2yrs ). See Note 1 Note 1 For addit ional infor monserrat munroe e refer to http: //raul Stricklandia gnost ics.c om/fa q/FAQ 199 (This link is being provi ded for infor davis jeong/ educjerry sepulveda purpo ses only. ) Not Available [facility] [address] [place], [address], 03/20/2022 09:11:08 03/19/20 22 03/20/2022 HEMOG LOBIN A1C hemoglobin A1C 5.4 %_of_ total _HGB <5.7 normal For the purpo se of scree nicol for the prese nce of diabe celia: <5.7% Consi stent with the absen ce of diabe celia 5.7-6 .4% Consi stent with incre ased risk for diabe celia (pred iabet es) > or =6.5% Consi stent with diabe celia This assay resul t is consi stent with a decre ased risk of diabe celia. Curre ntly, no conse nsus exist silvestre garay use of hemog lobin A1c for diagn osis of diabe celia in child andreas. Accor tanisha to Ameri can Diabe celia Assoc iatio n (ADA) guide lines , hemog lobin A1c <7.0% repre sents optim al contr ol in non-p regna nt diabe tic patie nts. Diffe rent metri cs may apply to speci fic patie nt popul ation s. [facility] in Diabe celia(A DA). Not Available [address] [address] [place], [address], 03/20/2022 09:11:07 03/19/20 22 03/20/2022 COMPR EHENS CLEMENCIA METAB OLIC PANEL glucose 90 mg/dL 65-99 normal Fasti ng refer ence inter tawanna Not Available [address] [address] [place], [address], 03/20/2022 09:11:07 03/19/20 22 03/20/2022 COMPR EHENS CLEMENCIA METAB OLIC PANEL urea nitrogen (BUN) 11 mg/dL 7-25 normal Not Available [facility] [address], [address], 03/20/2022 09:11:07 03/19/20 22 03/20/2022 COMPR EHENS CLEMENCIA METAB OLIC PANEL creatinine 0.98 mg/dL 0.50-0 .97 high Not Available [facility] [address], [address], 03/20/2022 09:11:07 03/19/20 22 03/20/2022 COMPR EHENS CLEMENCIA METAB OLIC PANEL eGFR 76 mL/mi n/1.7 3m2 > or = 60 normal The eGFR is based on the CKD-E PI 2020 tristin diane. To calcu late the new eGFR from a previ ous Creat inine or Cysta tin C resul t, go to https ://ekta simmons.naman young/pr ofess ional s/ kdoqi /gfr% 5Fcal culat or Not Available [address] [address] [place], [address], 03/20/2022 09:11:07 03/19/20 22 03/20/2022 COMPR EHENS CLEMENCIA METAB OLIC PANEL BUN/creatini ne ratio 11 (calc ) 6-22 normal Not Available [address], [address], 03/20/2022 09:11:07 03/19/20 22 03/20/2022 COMPR EHENS CLEMENCIA METAB OLIC PANEL sodium 139 mmol/ L 135-14 6 normal Not Available [address], [address], 03/20/2022 09:11:07 03/19/20 22 03/20/2022 COMPR EHENS CLEMENCIA METAB OLIC PANEL potassium 4.4 mmol/ L 3.5-5. 3 normal Not Available [address], [address], 03/20/2022 09:11:07 03/19/20 22 03/20/2022 COMPR EHENS CLEMENCIA METAB OLIC PANEL chloride 104 mmol/ L 98-110 normal Not Available [address], [address], 03/20/2022 09:11:07 03/19/20 22 03/20/2022 COMPR EHENS CLEMENCIA METAB OLIC PANEL carbon dioxide 25 mmol/ L 20-32 normal Not Available [address] [address] [place], [address], 03/20/2022 09:11:07 03/19/20 22 03/20/2022 COMPR EHENS CLEMENCIA METAB OLIC PANEL calcium 10.0 mg/dL 8.6-10 .2 normal Not Available [address], [address], 03/20/2022 09:11:07 03/19/20 22 03/20/2022 COMPR EHENS CLEMENCIA METAB OLIC PANEL protein, total 8.0 g/dL 6.1-8. 1 normal Not Available [address], [address], 03/20/2022 09:11:07 03/19/20 22 03/20/2022 COMPR EHENS CLEMENCIA METAB OLIC PANEL albumin 4.6 g/dL 3.6-5. 1 normal Not Available [address], [address], 03/20/2022 09:11:07 03/19/20 22 03/20/2022 COMPR EHENS CLEMENCIA METAB OLIC PANEL globulin 3.4 g/dL_ (calc ) 1.9-3. 7 normal Not Available [address], [address], 03/20/2022 09:11:07 03/19/20 22 03/20/2022 COMPR EHENS CLEMENCIA METAB OLIC PANEL albumin/glob ulin ratio 1.4 (calc ) 1.0-2. 5 normal Not Available [address], [address], 03/20/2022 09:11:07 03/19/20 22 03/20/2022 COMPR EHENS CLEMENCIA METAB OLIC PANEL bilirubin, total 0.5 mg/dL 0.2-1. 2 normal Not Available [address], [address], 03/20/2022 09:11:07 03/19/20 22 03/20/2022 COMPR EHENS CLEMENCIA METAB OLIC PANEL alkaline phosphatase 99 U/L 31-125 normal Not Available [address], [address], 03/20/2022 09:11:07 03/19/20 22 03/20/2022 COMPR EHENS CLEMENCIA METAB OLIC PANEL AST 21 U/L 10-30 normal Not Available [address], [address], 03/20/2022 09:11:07 03/19/20 22 03/20/2022 COMPR EHENS CLEMENCIA METAB OLIC PANEL ALT 22 U/L 6-29 normal Not Available [address], [address], 03/20/2022 09:11:07 03/19/20 22 03/20/2022 LIPID PANEL WITH RATIO S cholesterol, total 193 mg/dL <200 normal Not Available [address], [address], 03/20/2022 09:11:06 03/19/20 22 03/20/2022 LIPID PANEL WITH RATIO S HDL cholesterol 40 mg/dL > or = 50 low Not Available [address], [address], 03/20/2022 09:11:06 03/19/20 22 03/20/2022 LIPID PANEL WITH RATIO S triglyceride s 270 mg/dL <150 high If a non-f astin g speci men was colle cted, consi zaire repea t trigl yceri de testi ng on a fasti ng speci men if clini katlyn indic ated. Juan aguayo et al. J. of Clin. Lipid ol. 2015; 9:129 -169. Not Available [address], [address], 03/20/2022 09:11:06 03/19/20 22 03/20/2022 LIPID PANEL WITH RATIO S LDL-choleste rol 114 mg/dL _(shahab c) high Refer ence range : <100 Asad able range <100 mg/dL for prima ry preve ntion ; <70 mg/dL for patie nts with CHD or diabe tic patie nts with > or = 2 CHD risk facto rs. LDL-C is now calcu lated using the Bri n-Hop fitz francsi, which is a valid ated novel metho d provi tanisha britt r accur acy than the Fried jarrett alcantaraat ion in the estim ation of LDL-C . Bri francis SS et al. PAUL. 2013; 310(1 9): 2061- 2068 (http ://ed ucati on.Qu estDi floraos Agile E[employer]ys. com/f aq/FA Q164) Not Available [facility] [address], [address], 03/20/2022 09:11:06 03/19/20 22 03/20/2022 LIPID PANEL WITH RATIO S chol/HDLC ratio 4.8 (calc ) <5.0 normal Not Available [address], [address], 03/20/2022 09:11:06 03/19/20 22 03/20/2022 LIPID PANEL WITH RATIO S LDL/HDL ratio 2.9 (calc ) Below avera ge Risk: <2.34 [place] ge Risk: 2.35- 4.12 Moder ate Risk: 4.13- 5.56 High Risk: >5.57 Not Available [address], [address], 03/20/2022 09:11:06 03/19/20 22 03/20/2022 LIPID PANEL WITH RATIO S non HDL cholesterol 153 mg/dL _(shahab c) <130 high For patie nts with diabe celia plus 1 major ASCVD risk facto r, treat ing to a non-H DL-C goal of <100 mg/dL (LDL- C of <70 mg/dL ) is consi jamaicad a therjerry pewaleska c optio n. Not Available [address], [address], 03/20/2022 09:11:06 03/19/20 22 03/20/2022 TSH+F REE T4 TSH 1.76 mIU/L normal Refer ence Range > or = 20 Years 0.40- 4.50 Pregn maritza Range s First trime ster 0.26- 2.66 Secon d trime ster 0.55- 2.73 Third trime ster 0.43- 2.91 Not Available [address], [address], 03/20/2022 09:11:05 03/19/20 22 03/20/2022 TSH+F REE T4 T4, free 1.2 NG/dL 0.8-1. 8 normal Not Available [address], [address], 03/20/2022 09:11:05 05/16/19 24 05/17/2023 TSH+F REE T4 TSH 1.41 mIU/L normal Refer ence Range > or = 20 Years 0.40- 4.50 Pregn maritza Range s First trime ster 0.26- 2.66 Secon d trime ster 0.55- 2.73 Third trime ster 0.43- 2.91 Not Available [address], [address], 05/17/2023 03:04:20 05/16/19 24 05/17/2023 TSH+F REE T4 T4, free 1.2 NG/dL 0.8-1. 8 normal Not Available [address], [address], 05/17/2023 03:04:20 05/16/19 24 05/17/2023 LIPID PANEL WITH RATIO S cholesterol, total 210 mg/dL <200 high Not Available [address], [address], 05/17/2023 03:04:22 05/16/19 24 05/17/2023 LIPID PANEL WITH RATIO S HDL cholesterol 41 mg/dL > or = 50 low Not Available [address], [address], 05/17/2023 03:04:22 05/16/19 24 05/17/2023 LIPID PANEL WITH RATIO S triglyceride s 165 mg/dL <150 high Not Available [address], [address], 05/17/2023 03:04:22 05/16/1905/17/2023 LIPID PANEL WITH RATIO S LDL-choleste rol 139 mg/dL _(shahab c) high Refer ence range : <100 Asad able range <100 mg/dL for prima ry preve ntion ; <70 mg/dL for patie nts with CHD or diabe tic patie nts with > or = 2 CHD risk facto rs. LDL-C is now calcu lated using the Bri n-Hop kins calcu karla n, which is a valid ated novel ann garay britt r accur acy than the Fried jarrett equat ion in the estim ation of LDL-C . Bri francis SS et al. PAUL. 2013; 310(1 9): 2061- 2068 (http ://ed ucati on.Qu Clarke [employer]. com/f aq/FA Q164) Not Available [facility] [address], [address], 05/17/2023 03:04:22 05/16/1905/17/2023 LIPID PANEL WITH RATIO S chol/HDLC ratio 5.1 (calc ) <5.0 high Not Available [facility] [address], [address], 05/17/2023 03:04:22 05/16/1905/17/2023 LIPID PANEL WITH RATIO S LDL/HDL ratio 3.4 (calc ) Below avera ge Risk: <2.34 [place] ge Risk: 2.35- 4.12 Moder ate Risk: 4.13- 5.56 High Risk: >5.57 Not Available [address] [address] [address] [place], [address], 05/17/2023 03:04:22 01/18/20 24 05/17/2023 LIPID PANEL WITH RATIO S non HDL cholesterol 169 mg/dL _(shahab c) <130 high For patie nts with diabe celia plus 1 major ASCVD risk facto r, treat ing to a non-H DL-C goal of <100 mg/dL (LDL- C of <70 mg/dL ) is elana hanley peutyue c optio n. Not Available [address] [place], [address], 05/17/2023 03:04:22 05/16/19 24 05/17/2023 COMPR EHENS CLEMENCIA METAB OLIC PANEL glucose 87 mg/dL 65-99 normal Fasti ng refer ence inter tawanna Not Available [address], [address], 05/17/2023 03:04:23 05/16/19 24 05/17/2023 COMPR EHENS CLEMENCIA METAB OLIC PANEL urea nitrogen (BUN) 11 mg/dL 7-25 normal Not Available [address] [place], [address], 05/17/2023 03:04:23 05/16/19 24 05/17/2023 COMPR EHENS CLEMENCIA METAB OLIC PANEL creatinine 0.94 mg/dL 0.50-0 .97 normal Not Available [address], [address], 05/17/2023 03:04:23 05/16/19 24 05/17/2023 COMPR EHENS CLEMENCIA METAB OLIC PANEL eGFR 80 mL/mi n/1.7 3m2 > or = 60 normal Not Available [address], [address], 05/17/2023 03:04:23 05/16/19 24 05/17/2023 COMPR EHENS CLEMENCIA METAB OLIC PANEL BUN/creatini ne ratio SEE NOTE: (calc ) 6-22 Not Repor darcy: BUN and Creat inine are withi n refer ence range . Not Available [address] [place], [address], 05/17/2023 03:04:23 05/16/19 24 05/17/2023 COMPR EHENS CLEMENCIA METAB OLIC PANEL sodium 140 mmol/ L 135-14 6 normal Not Available [address], [address], 05/17/2023 03:04:23 05/16/19 24 05/17/2023 COMPR EHENS CLEMENCIA METAB OLIC PANEL potassium 4.3 mmol/ L 3.5-5. 3 normal Not Available [address], [address], 05/17/2023 03:04:23 05/16/19 24 05/17/2023 COMPR EHENS CLEMENCIA METAB OLIC PANEL chloride 106 mmol/ L 98-110 normal Not Available [address], [address], 05/17/2023 03:04:23 05/16/19 24 05/17/2023 COMPR EHENS CLEMENCIA METAB OLIC PANEL carbon dioxide 26 mmol/ L 20-32 normal Not Available [address], [address], 05/17/2023 03:04:05/16/19 24 05/17/2023 COMPR EHENS CLEMENCIA METAB OLIC PANEL calcium 9.8 mg/dL 8.6-10 .2 normal Not Available [address], [address], 05/17/2023 03:04:05/16/19 24 05/17/2023 COMPR EHENS CLEMENCIA METAB OLIC PANEL protein, total 6.9 g/dL 6.1-8. 1 normal Not Available [address], [address], 05/17/2023 03:04:23 05/16/19 24 05/17/2023 COMPR EHENS CLEMENCIA METAB OLIC PANEL albumin 4.2 g/dL 3.6-5. 1 normal Not Available [address] [address] [place], [address], 05/17/2023 03:04:23 05/16/19 24 05/17/2023 COMPR EHENS CLEMENCIA METAB OLIC PANEL globulin 2.7 g/dL_ (calc ) 1.9-3. 7 normal Not Available [address], [address], 05/17/2023 03:04:23 05/16/19 24 05/17/2023 COMPR EHENS CLEMENCIA METAB OLIC PANEL albumin/glob ulin ratio 1.6 (calc ) 1.0-2. 5 normal Not Available [address], [address], 05/17/2023 03:04:23 05/16/19 24 05/17/2023 COMPR EHENS CLEMENCIA METAB OLIC PANEL bilirubin, total 0.3 mg/dL 0.2-1. 2 normal Not Available [address], [address], 05/17/2023 03:04:23 05/16/19 24 05/17/2023 COMPR EHENS CLEMENCIA METAB OLIC PANEL alkaline phosphatase 72 U/L 31-125 normal Not Available [address] [address] [place], [address], 05/17/2023 03:04:23 05/16/19 24 05/17/2023 COMPR EHENS CLEMENCIA METAB OLIC PANEL AST 15 U/L 10-30 normal Not Available [address], [address], 05/17/2023 03:04:23 05/16/19 24 05/17/2023 COMPR EHENS CLEMENCIA METAB OLIC PANEL ALT 22 U/L 6-29 normal Not Available [address], [address], 05/17/2023 03:04:23 05/16/19 24 05/17/2023 HEMOG LOBIN A1C hemoglobin A1C 5.4 %_of_ total _HGB <5.7 normal For the purpo se of tani durantg for the prese nce of diabe celia: <5.7% Consi stent with the absen ce of diabe celia 5.7-6 .4% Consi stent with incre ased risk for diabe celia (pred iabet es) > or =6.5% Consi stent with diabe celia This assay resul t is consi stent with a decre ased risk of diabe celia. Curre ntly, no conse nsus exist s nirmala garay use of hemog lobin A1c for diagn osis of diabe celia in child andreas. Accor ding to Ameri can Diabe celia Assoc iatio n (ADA) guide lines , hemog lobin A1c <7.0% repre sents optim al contr ol in non-p regna nt diabe tic patie nts. Diffe rent metri cs may apply to speci fic patie nt popul ation s. Stand ards of Medic al Care in Diabe celia(A DA). HbA1c perfo rmed on Abbot t platf orm. Not Available [facility] [address] [address] [place], [address], 05/17/2023 03:04:24 05/16/19 24 05/17/2023 CBC (INCL UDES DIFF/ PLT) white blood cell count 7.6 thous and/u L 3.8-10 .8 normal Not Available [facility] [address] [address] [place], [address], 05/17/2023 03:04:25 05/16/19 24 05/17/2023 CBC (INCL UDES DIFF/ PLT) red blood cell count 4.93 jaan on/uL 3.80-5 .10 normal Not Available [facility] [address] [address] [place], [address], 05/17/2023 03:04:25 05/16/19 24 05/17/2023 CBC (INCL UDES DIFF/ PLT) hemoglobin 15.8 g/dL 11.7-1 5.5 high Not Available [address], [address], 05/17/2023 03:04:25 05/16/19 24 05/17/2023 CBC (INCL UDES DIFF/ PLT) hematocrit 45.9 % 35.0-4 5.0 high Not Available [address], [address], 05/17/2023 03:04:25 05/16/19 24 05/17/2023 CBC (INCL UDES DIFF/ PLT) MCV 93.1 fL 80.0-1 00.0 normal Not Available [address], [address], 05/17/2023 03:04:25 05/16/19 24 05/17/2023 CBC (INCL UDES DIFF/ PLT) MCH 32.0 pg 27.0-3 3.0 normal Not Available [address], [address], 05/17/2023 03:04:25 05/16/19 24 05/17/2023 CBC (INCL UDES DIFF/ PLT) MCHC 34.4 g/dL 32.0-3 6.0 normal Not Available [address], [address], 05/17/2023 03:04:25 05/16/19 24 05/17/2023 CBC (INCL UDES DIFF/ PLT) RDW 12.8 % 11.0-1 5.0 normal Not Available [address], [address], 05/17/2023 03:04:25 05/16/19 24 05/17/2023 CBC (INCL UDES DIFF/ PLT) platelet count 304 thous and/u L 140-40 0 normal Not Available [facility] [address], [address], 05/17/2023 03:04:25 05/16/19 24 05/17/2023 CBC (INCL UDES DIFF/ PLT) MPV 11.1 fL 7.5-12 .5 normal Not Available [address], [address], 05/17/2023 03:04:25 05/16/19 24 05/17/2023 CBC (INCL UDES DIFF/ PLT) absolute neutrophils 4340 cells /uL 1500-7 800 normal Not Available [address], [address], 05/17/2023 03:04:25 05/16/19 24 05/17/2023 CBC (INCL UDES DIFF/ PLT) absolute lymphocytes 2576 cells /uL 850-39 00 normal Not Available [address], [address], 05/17/2023 03:04:25 05/16/19 24 05/17/2023 CBC (INCL UDES DIFF/ PLT) absolute monocytes 517 cells /uL 200-95 0 normal Not Available [address], [address], 05/17/2023 03:04:25 05/16/19 24 05/17/2023 CBC (INCL UDES DIFF/ PLT) absolute eosinophils 129 cells /uL 15-500 normal Not Available [facility] [address], [address], 05/17/2023 03:04:25 05/16/19 24 05/17/2023 CBC (INCL UDES DIFF/ PLT) absolute basophils 38 cells /uL 0-200 normal Not Available [facility] [address], [address], 05/17/2023 03:04:25 05/16/19 24 05/17/2023 CBC (INCL UDES DIFF/ PLT) neutrophils 57.1 % normal Not Available [address], [address], 05/17/2023 03:04:25 05/16/19 24 05/17/2023 CBC (INCL UDES DIFF/ PLT) lymphocytes 33.9 % normal Not Available [facility] [address], [address], 05/17/2023 03:04:25 05/16/19 24 05/17/2023 CBC (INCL UDES DIFF/ PLT) monocytes 6.8 % normal Not Available [facility] [address], [address], 05/17/2023 03:04:25 05/16/19 24 05/17/2023 CBC (INCL UDES DIFF/ PLT) eosinophils 1.7 % normal Not Available [facility] [address], [address], 05/17/2023 03:04:25 05/16/19 24 05/17/2023 CBC (INCL UDES DIFF/ PLT) basophils 0.5 % normal Not Available [address], [address], 05/17/2023 03:04:25 11/18/19 22 11/17/2021 diagn ostic colon oscop y (PROC ) No observ ation record ed. [id number] [facility] [address] [facility], [place], [address], 06/27/2022 06:52:51 11/21/1911/20/2021 CT, head, w/o contr ast No observ ation record ed. [id number] , [place], [address], 06/27/2022 06:52:51 08/04/11/30/2021 MAMMO , diagn ostic , digit al, bilat eral No observ ation record ed. MIGRATION. [address] , [place], [address], 06/27/2022 06:52:51 12/02/19 22 11/30/2021 US, breas t, bilat eral No observ ation record ed. MIGRATION. [address] , [place], [address], 06/27/2022 06:52:51 04/25/20 22 04/10/2022 MRI, brain + orbit s, w/wo contr ast No observ ation record ed. MIGRATION. [facility] [address] [place], [address], 06/27/2022 06:52:51 04/25/20 22 04/10/2022 MRI, thora cic spine , w/wo contr ast No observ ation record ed. [email or web address]. [facility] [address] [place], [address], 06/27/2022 06:52:51 05/28/19 23 05/28/2022 CT, abdom en + pelvi s, w/ contr ast No observ ation record ed. MIGRATION. [address] , [place], [address], 06/27/2022 06:52:51 10/18/19 23 10/17/2022 XR, cervi shahab spine , 2 or 3 view No observ ation record ed. [email or web address] [address] , [place], [address], 01/15/2023 18:28:10 10/25/19 23 10/24/2022 MRI, cervi shahab spine , w/o contr ast No observ ation record ed. [email or web address] [address] , [place], [address], 11/01/2022 12:20:31 12/01/19 23 11/30/2022 MAMMO , scree nicol, bilat eral No observ ation record ed. [email or web address] [address] , [place], [address], 05/06/2023 11:14:30 Result Notes None recorded. Problems Name Problem SNOMED Code Status Onset Date Resolution Date Notes Provider Name and Address Organization Details Recorded Time Benign essential hypertens ion 0726521 Active 2021 Not Available [facility] 3 08:19:15 Mastodyni a of bilateral breasts [id number] 119345 Active 2021 Not Available [facility] 3 08:19:16 Amenorrhe a 78460669 Completed Not Available [facility] 3 06:44:58 Nausea present 931290776 Active Not Available [facility] 3 08:19:16 Generaliz ed headache 439987003 Active Not Available [facility] 3 08:19:16 Pain in throat 037805765 Active Not Available [facility] 3 08:19:16 Recurrent sinusitis 341589795 Active Not Available [facility] 3 08:19:16 Pain of joint of hand 610656249 Active Not Available [facility] 3 08:19:16 Generaliz ed anxiety disorder 06633553 Active 2021 Not Available [facility] 3 08:19:16 Gallstone 816887023 Active Not Available [facility] 3 08:19:16 Multiple sclerosis 64260496 Active Not Available [facility] 3 08:19:16 Eruption 570915326 Active Not Available [facility] 3 08:19:16 Fibrocyst ic disease of breast 17275613 Active Not Available [facility] 3 08:19:16 Thoracic back pain 478048064 Active Not Available [facility] 3 08:19:16 Severe recurrent major depressio n 47472672917 3 Active Not Available [facility] 3 08:19:16 Cyst of skin 657865285 Active 2021 Not Available [facility] 3 08:19:16 Pain in right arm 846376666 Active Not Available [facility] 3 08:19:16 Left lower quadrant pain 024806623 Active 2022 Not Available [facility] 3 08:19:16 Right upper quadrant pain 132331931 Active Not Available [facility] 3 08:19:16 Numbness of hand 937646769 Active Not Available [facility] 3 08:19:16 Acute otitis media 8997216 Active Not Available [facility] 3 08:19:16 Otitis externa 1905221 Active Not Available [facility] 3 08:19:16 Vitamin D deficienc y 27846936 Active 2021 Not Available [facility] 3 08:19:16 Rebound tendernes s 48105933 Active 2022 Not Available [facility] 3 08:19:16 Seasonal allergic rhinitis 187751861 Active Not Available [facility] 3 08:19:16 Major depressiv e disorder 947384436 Active Not Available [facility] 3 08:19:16 Biliary colic 82763842 Active Not Available [facility] 3 08:19:16 Fever 037695058 Active 2021 Not Available [facility] 3 08:19:16 Osteoarth ritis 334965495 Active Not Available [facility] 3 08:19:16 Vertigo 841615985 Active Not Available [facility] 3 08:19:16 Dizziness 448348631 Active Not Available [facility] 3 08:19:16 Magnetic resonance imaging of brain abnormal 823282066 Active Not Available [facility] 3 08:19:16 Spinal stenosis of thoracic region 09295743 Active Not Available [facility] 3 08:19:16 Pain in eye 90160190 Active Not Available [facility] 3 08:19:16 Nausea 524543060 Active Not Available [facility] 3 08:19:16 Maternal tobacco use 452277871 Completed Not Available [facility] 3 06:45:02 Mass of scalp 482860160 Active 2021 Not Available [facility] 3 08:19:16 Spasm 92699085 Active 2021 Not Available [facility] 3 08:19:16 Cough 67753576 Active 2021 Not Available [facility] 3 08:19:16 Threatene d miscarria ge 41688542 Completed Not Available [facility] 3 06:45:03 Upper respirato ry infection 09248977 Active Not Available [facility] 3 08:19:16 Cervical radiculop athy 24084549 Active Not Available [facility] 3 08:19:16 Hyperlipi demia 38586257 Active 2021 Not Available [facility] 3 08:19:16 Carpal tunnel syndrome 65083002 Active Not Available [facility] 3 08:19:16 Occult blood detected in feces 63988612 Active 2021 Not Available [facility] 3 08:19:16 Visual disturban ce 34405910 Active Not Available [facility] 3 08:19:16 Optic neuritis 07200635 Active Not Available [facility] 3 08:19:16 Degenerat ion of cervical intervert ebral disc 73763691 Active Not Available [facility] 3 08:19:16 Skin lesion 68253119 Active Not Available [facility] 3 08:19:16 Spinal stenosis in cervical region 75094789 Active 2022 CHEN Krause [address], [place] [address], [place], [address] , [employer] [facility] [employer] [facility] 3 15:01:04 Acute sinusitis 75800652 Active 2022 CHEN Krause [address], [address], [place], [address] , [facility] [employer] [facility] 3 12:53:40 Postviral cough 010400908 Active 2023 CHEN Krause [address] [facility], [facility] [address], [place], [address] , [facility] [employer] 4 11:18:11 Problem Notes None recorded. Procedures Surgical History Date Name Laterality Status Provider Name and Address Organization Details Recorded Time 07/30/19 21 EXCISION OF CYST (SURG) completed Not Available [facility] 06/27/2022 06:52:47 03/17/20 15 Most Recent Mammogram completed Not Available [facility] 06/27/2022 06:40:16 [employer] Procedure completed Not Available [facility] 06/27/2022 06:40:18 Cholecystectomy completed Not Available [facility] 06/27/2022 06:40:18 Imaging Results None recorded. Procedure Notes None recorded. Medical Equipment None Reported. Allergies No known drug allergies Medications Name Sig Start Date Stop Date Status Note LastModified by Organization Details LastModified Time cyclobenz aprine 10 mg tablet take half to one tab po tid PRN active Not Available Not Available No t Available doxycycli ne hyclate 100 mg capsule Take 1 capsule twice a day by oral route with meals. active Not Available Not Available No t Available azithromy hieu 250 mg tablet TAKE 2 TABLETS (500 MG) BY ORAL ROUTE ONCE DAILY FOR 1 DAY THEN 1 TABLET (250 MG) BY ORAL ROUTE ONCE DAILY FOR 4 DAYS active Not Available Not Available No t Available ibuprofen 800 mg tablet TAKE 1 TABLET BY MOUTH TWICE A DAY NEEDED active Not Available Not Available No t Available fluconazo le 150 mg tablet 150 MG ORALLY ONCE A SINGLE DOSE 10/16 completed Not Available Not Available Not Available benzonata te 200 mg capsule one tab po TID for cough active Not Available Not Available No t Available ondansetr on HCl 4 mg tablet Take by oral route as needed for 2 days. active Not Available Not Available No t Available prednison e 20 mg tablet Take 2 tablets every day by oral route for 5 days. 05/18 completed Not Available Not Available Not Available spironola ctone 100 mg tablet 06/18 completed Not Available Not Available Not Available penicilli n V potassium 500 mg tablet active Not Available Not Available Not Available metronida zole 500 mg tablet TAKE 1 TABLET BY MOUTH EVERY 8 HOURS 10/16 completed Not Available Not Available Not Available acetamino phen 300 mg-codein e 30 mg tablet takes as needed. 09/11 completed Not Available Not Available Not Available ciproflox acin 500 mg tablet TAKE 1 TABLET BY MOUTH EVERY 12 HOURS 10/16 completed Not Available Not Available Not Available sulfameth oxazole 800 mg-trimet hoprim 160 mg tablet Take 1 tablet every 12 hours by oral route. 10/10 completed Not Available Not Available Not Available tramadol 50 mg tablet Take 1 tablet every 6 hours by oral route as needed. 2014 active Not Available Not Available Not Avai lable triamcino lone acetonide 0.1 % topical cream APPLY A THIN LAYER TO THE AFFECTED AREA(S) BY TOPICAL ROUTE 2 TIMES PER DAY active Not Available Not Available No t Available meloxicam 7.5 mg tablet active Not Available Not Available Not Available oxycodone -acetamin ophen 5 mg-325 mg tablet active Not Available Not Available Not Available Guaiatuss in AC 10 mg-100 mg/5 mL oral liquid TAKE 10 MILLILIT ERS BY MOUTH EVERY 6 HOURS NEEDED 04/10 completed Not Available Not Available Not Available amoxicill in 875 mg tablet Take 1 tablet every 12 hours by oral route. active Not Available Not Available No t Available methocarb kevin 750 mg tablet Take 1 tablet every 8 hours by oral route as needed. active Not Available Not Available No t Available baclofen 10 mg tablet TAKE 1 TABLET 3 TIMES A DAY BY ORAL ROUTE NEEDED. active Not Available Not Available No t Available hydrocodo ne 7.5 mg-acetam inophen 325 mg tablet TAKE 1 TABLET BY MOUTH EVERY 4 HOURS NEEDED 01/31 completed Not Available Not Available Not Available cephalexi n 500 mg capsule TAKE 1 CAPSULE BY MOUTH TWICE A DAY FOR 7 DAYS 05/03 completed Not Available Not Available Not Available fluoxetin e 10 mg capsule 06/18 completed Not Available Not Available Not Available betametha sone, augmented 0.05 % topical ointment 06/18 completed Not Available Not Available Not Available diclofena c sodium 75 mg tablet,de layed release 06/18 completed Not Available Not Available Not Available hydrocort isone 2.5 % topical cream APPLY TO AFFECTED AREA 2 TO 3 TIMES DAILY active Not Available Not Available No t Available monteluka st 10 mg tablet Take 1 tablet every day by oral route. active Not Available Not Available No t Available mupirocin 2 % topical ointment APPLY TO THE AFFECTED AREA ON RIGHT ARM LESION TWICE DAILY FOR 10 DAYS 05/06 completed Not Available Not Available Not Available ergocalci ferol (vitamin D2) 1,250 mcg (50,000 unit) capsule TAKE 1 CAPSULE BY MOUTH EVERY WEEK DIRECTED active Not Available Not Available No t Available lidocaine 3 %-hydroco rtisone 0.5 % topical cream active Not Available Not Available Not Available levofloxa hieu 500 mg tablet Take 1 tablet every 24 hours by oral route. 06/18 completed Not Available Not Available Not Available methylpre dnisolone 4 mg tablets in a dose pack take as directed 06/18 completed Not Available Not Available Not Available hydrocodo ne 10 mg-chlorp heniramin e 8 mg/5 mL oral susp extend.re l 12hr Take 5 mL every 12 hours by oral route as needed. 06/18 completed Not Available Not Available Not Available albuterol sulfate HFA 90 mcg/actua tion aerosol inhaler Inhale 2 puffs every 4 hours by inhalati on route as needed. active Not Available Not Available No t Available cefdinir 300 mg capsule Take 1 capsule every 12 hours by oral route. active Not Available Not Available No t Available fluticaso ne propionat e 50 mcg/actua tion nasal spray,[employer] pension inhale 2 sprays each nostril daily active Not Available Not Available No t Available naproxen 500 mg tablet active Not Available Not Available Not Available amoxicill in 875 mg-potass ium clavulana te 125 mg tablet TAKE 1 TABLET BY MOUTH EVERY 12 HOURS 05/03 completed Not Available Not Available Not Available escitalop gene 10 mg tablet Take 1 tablet every day by oral route in the evening. active Not Available Not Available No t Available cyclobenz aprine 5 mg tablet Take 1 tablet every day by oral route as needed for 30 days. 06/18 completed Not Available Not Available Not Available lidocaine 3 %-hydroco rtisone 0.5 % rectal cream Insert 1 applicat ion twice a day by rectal route as needed. active Not Available Not Available No t Available Ciprodex 0.3 %-0.1 % ear drops,kayley pension INSTILL 4 DROPS INTO AFFECTED EAR(S) BY OTIC ROUTE 2 TIMES PER DAY FOR 5-7 DAYS 09/10 completed Not Available Not Available Not Available duloxetin e 30 mg capsule,d elayed release Take 1 capsule every day by oral route. 06/18 completed Not Available Not Available Not Available duloxetin e 60 mg capsule,d elayed release Take 1 capsule every day by oral route. 06/18 completed Not Available Not Available Not Available vitamin E otc, takes daily 10/11 completed Not Available Not Available Not Available Fish Oil 2021 active Not Available Not Available Not Avai lable hydrochlo rothiazid e 12.5 mg tablet TAKE 1 TABLET BY MOUTH EVERY DAY IN THE MORNING active Not Available Not Available No t Available B12 otc, takes daily 10/11 completed Not Available Not Available Not Available Horizant ER 600 mg tablet,ex tended release Take 1 tablet every day by oral route. 2014 active PRN per patient. for Upper extremit y neuropat hy PRN night Not Available Not Available Not Available Rebif Rebidose 8.8 mcg/0.2 mL-22 mcg/0.5 mL (6) subcutane ous pen inj. active Not Available Not Available Not Available Rebif Rebidose 44 mcg/0.5 mL subcutane ous pen injector takes 3 times a week. 06/18 completed Not Available Not Available Not Available Zorvolex 35 mg capsule Take 1 capsule twice a day by oral route. active Not Available Not Available No t Available ProAir RespiClic k 90 mcg/actua tion breath activated inhale 2 puffs every 4hrs by inhalati on route 06/18 completed Not Available Not Available Not Available Anusol-HC 2.5 % topical cream with perineal applicato r APPLY via applicat or TO THE AFFECTED AREA(S) BY TOPICAL ROUTE 2-3 TIMESDAI LY 06/30 completed Not Available Not Available Not Available Incassia 0.35 mg tablet 10/17 completed Not Available Not Available Not Available Afluria Quad 8538-2919 (PF) 60 mcg (15 mcg x 4)/0.5 mL IM syringe ADM 0.5ML IM UTD 06/30 completed Not Available Not Available Not Available Flublok Quad (PF) 180 mcg (45 mcg x 4)/0.5 mL IM syringe PHARMACY ADMINIST ERED 06/30 completed Not Available Not Available Not Available Vitals Date Recorded Body mass index (BMI) Body weight Heart rate Respiratory rate Oxygen saturation Oxygen saturation in Arterial blood by Pulse oximetry Systolic blood pressure Diastolic blood pressure Provider Name and Address Organization Details Last Updated DateTime 4 36 kg/m2 07345.4 g 57 /min 16 /min 98 % 98 % 130 mm[Hg] 80 mm[Hg] CHEN Krause [address] [facility], [facility] [address], [place], [address], [employer] 4 11:17:34 Date Recorded Body height Provider Name an d Address Organization Details Last Updated DateTime 05/06/2023 162.56 cm TIFFANY Talley [employer] 05/06/2023 10:44:09 Date Recorded Body mass index (BMI) Body height Oxygen saturation Oxygen saturation in Arterial blood by Pulse oximetry Heart rate Body temperature Body weight Systolic blood pressure Diastolic blood pressure Provider Name and Address Organization Details Last Updated DateTime 3 35.2 kg/m2 162.56 cm 98 % 98 % 74 /min 97.3 [degF] 95281.4 4 g 128 mm[Hg] 82 mm[Hg] Not Available [employer] 3 06:42:04 Date Recorded Body height Body temperature Body mass index (BMI) Body weight Respiratory rate Oxygen saturation Oxygen saturation in Arterial blood by Pulse oximetry Heart rate Systolic blood pressure Diastolic blood pressure Provider Name and Address Organization Details Last Updated DateTime 3 162.56 cm 96.7 [degF] 35.2 kg/m2 97795.4 4 g 16 /min 98 % 98 % 84 /min 128 mm[Hg] 88 mm[Hg] TIFFANY Talley [employer] 3 10:07:43 Date Recorded Body mass index (BMI) Body height Oxygen saturation Oxygen saturation in Arterial blood by Pulse oximetry Heart rate Respiratory rate Body temperature Body weight Provider Name and Address Organization Details Last Updated DateTime 2 35.3 kg/m2 162.56 cm 98 % 98 % 60 /min 16 /min 97.7 [degF] 52492.5 9 g Not Available [facility] 3 06:42:16 Date Recorded Body mass index (BMI) Body height Oxygen saturation Oxygen saturation in Arterial blood by Pulse oximetry Heart rate Respiratory rate Body temperature Body weight Systolic blood pressure Diastolic blood pressure Provider Name and Address Organization Details Last Updated DateTime 2 34.8 kg/m2 162.56 cm 98 % 98 % 61 /min 16 /min 97.7 [degF] 36367.2 5 g 130 mm[Hg] 80 mm[Hg] Not Available [facility] 3 06:42:04 Social History Question Answer Notes LastModified by Stokeat ion Details LastModified Time Tobacco Smoking Status Current Every Day Smoker Not Available [facility] 06/27/2022 06:39:45 What Is Your Level Of Caffeine Consumption? Heavy [id number] Information not available 06/27/2022 How Much Tobacco Do You Chew? None [id number] Information not available 06/27/2022 In The 14 Days Before Symptom Onset, Have You Had Close Contact With A Laboratory-confirm ed COVID-19 While That Case Was Ill? No [id number] Information not available 06/27/2022 In The 14 Days Before Symptom Onset, Have You Had Close Contact With A Person Who Is Under Investigation For COVID-19 While That Person Was Ill? No [id number] Information not available 06/27/2022 What Type Of Diet Are You Following? REGULAR [id number] Information not available 06/27/2022 Which Illicit Or Recreational Drugs Have You Used? None [id number] Information not available 06/27/2022 Have There Been Any Changes To Your Family Or Social Situation? No [id number] Information not available 06/27/2022 Are There Any Guns Present In Your Home? No [id number] Information not available 06/27/2022 Do You Use Insect Repellent Routinely? No [id number] Information not available 06/27/2022 What Was The Date Of Your Most Recent Tobacco Screening? 07/01/2020 [id number] Information not available 06/27/2022 What Is Your Relationship Status? Single [id number] 026 Information not available 06/27/2022 Do You Use Your Seat Belt Or Car Seat Routinely? Yes [id number] Information not available 06/27/2022 Do You Have Smoke And Carbon Monoxide Detectors In Your Home? Yes [id number] 026 Information not available 06/27/2022 At What Age Did You Start Smoking Tobacco? 13 [id number].[id number] 026 Information not available 06/27/2022 Do You Use Sunscreen Routinely? Yes [id number] 026 Information not available 06/27/2022 Have You Recently Traveled Abroad? No [id number].[id number] 026 Information not available 06/27/2022 Do You Have Any Dietary Restrictions? No [id number].[id number] 026 Information not available 06/27/2022 Sex: Unknown Functional Status Question Answer Note LastModified by Organizat ion Details LastModified Time Do you use any illicit or recreational drugs? No [id number] Information not available 06/27/2022 Do you or have you ever used any other forms of tobacco or nicotine? No [id number].[id number] Information not available 06/27/2022 What is your level of alcohol consumption? Moderate [id number].[id number] Information not available 06/27/2022 Do you or have you ever used smokeless tobacco? Never used smokeless tobacco MIGRATION.[id number] 1235 Information not available 06/27/2022 Are you currently employed? Yes [email or web address] Information not available 10/16/2022 What is your occupation? [email or web address] MIGRATION.[id number] 1233 Information not available 06/27/2022 Do you or have you ever used e-cigarettes or vape? Never used electronic cigarettes MIGRATION.[id number] Information not available 06/27/2022 What is your exercise level? None [id number].[id number] Information not available 06/27/2022 Mental Status None recorded. Family History Relationship Description Onset Age of this Age Resolved Age Notes LastModified by Organization Details LastModified Time Mother Diabetes mellitus [id number] Not available 06/27/2022 06:40:20 Father Hypertensive disorder [id number] Not available 06/27/2022 06:40:20 Medical History Condition Response BLINDNESS N RHEUMATIC FEVER N BLADDER PROBLEMS N SLEEP APNEA N MRSA N ALLERGIES/HAYFEVER N OTHER # 1 N INFECTIOUS DISEASE N HEART ARRHYTHMIA N LUNG DISEASE/DISORDER N INSOMNIA N RADIATION / CHEMOTHERAPY N COPD N HIGH CHOLESTEROL / HYPERLIPIDEMIA N Other # 2 N HYPERTHYROIDISM N BLOOD DISEASES N NEUROLOGICAL PROBLEMS N EDEMA N SURGERY N EAR OR HEARING PROBLEMS N HYPOTHYROIDISM N FEMALE PROBLEMS / INFECTIONS N DEPRESSION (INCLUDING POST ) N BOWEL PROBLEMS Y HAVE YOU BEEN HOSPITALIZED OR SEEN IN [facility] ER IN THE PAST YEAR ? N MIGRAINES N STROKE/TIA N ULCERS N BENIGN PROSTATIC HYPERPLASIA N BREAST PROBLEMS N MYOCARDIAL INFARCTION N OBESITY N GERD/NAUSEA N HISTORY WITH COMPLICATIONS WITH ANESTHES IA ? N ANEURYSM N OSTEOPOROSIS N URINARY/BLADDER/KIDNEY PROBLEMS N INPATIENT PSYCH CARE N ENDOMETRIOSIS N USE OF BLOOD THINNERS N NO SIGNIFICANT PAST MEDICAL HISTORY N SKIN PROBLEMS Y DIABETES, TYPE N PARATHYROID DISEASE N ENT N SEASONAL ALLERGIES Y HEARTBURN / REFLUX N BLOOD CLOTS N ASTHMA N HEPATITIS / LIVER DISEASE N PULMONARY DISEASE N SLEEP DISORDER N ALZHEIMER'S DISEASE N HERPES N HEADACHES/MIGRAINES N SEIZURES/EPILEPSY N VARICOSITIES N GI PROBLEMS N CHF N Low Testosterone N VASCULAR DISEASE N PACEMAKER N DIZZINESS N HEART DISEASE/HEART PROBLEMS N INFERTILITY N AIDS/HIV N KIDNEY DISEASE N FRACTURES N LIVER DISEASE N HYPERTENSION Y CANCER: SPECIFY N ANXIETY DISORDER Y BLOOD TRANSFUSION N ANESTHESIA COMPLICATIONS N ANEMIA/BLOOD DISORDER N CHRONIC EAR INFECTIONS N ATRIAL FIBRILLATION N PULMONARY EMBOLISM N AUTOIMMUNE DISEASE N TUBERCULOSIS N GLAUCOMA N Gynecological History Statement/Question Response Most Recent Mammogram 03/17/2015 Obstetrics History GPAL:G 3 P 0 0 0 2 Type Value Living 2 Total 3 Immunizations Vaccine Type Date Status Note Provider Nam e and Address Organization Details Recorded Time COVID-19, mRNA, LNP-S, PF, 30 mcg/0.3 mL dose 3 completed TIFFANY Talley null, [place] [facility] 07/27/2022 12:06:02 Influenza, split virus, quadrivalent, preservative 8 completed Not Available [facility] 06/27/2022 06:52:24 Influenza, split virus, quadrivalent, preservative 1 completed Not Available [facility] 06/27/2022 06:52:24 Influenza, split virus, quadrivalent, preservative 0 completed Not Available [facility] 06/27/2022 06:52:24 Past Encounters Encounter ID Performer Location Encounter Start Date Encounter Closed Date Diagnosis/Indication Diagnosis SNOMED-CT Code Diagnosis ICD10 Code Diagnosis Note [id number] CHEN Krause [facility] [place] [address] [place] [address] 07/01/2020 00:00:00 07/23/2020 22:54:33 [id number] Rick Knowles MD [facility] [place] [address] [place] [address] 07/05/2020 00:00:00 07/05/2020 10:50:33 [id number] Rick Knowles MD [facility] [place] [address] [place] [address] 08/11/2020 00:00:00 08/11/2020 12:27:25 [id number] CHEN Krause [facility] [place] [address] [place] [address] 01/31/2021 00:00:00 02/23/2021 23:48:54 [id number] Eyal Cabrera MD [facility] [place] [address] [place] [address] 10/11/2021 00:00:00 10/26/2021 14:33:49 [id number] Eyal Cabrera MD [facility] [place] [address] [place] [address] 11/23/2021 00:00:00 11/23/2021 11:17:03 [id number] CHEN Krause [facility] [place] [address] [place] [address] 04/11/2022 00:00:00 04/26/2022 12:05:38 [id number] CHEN Krause [facility] [place] [address] [place] [address] 05/22/2022 00:00:00 05/29/2022 16:55:39 [id number] CHEN Krause [facility] [place] [address] [place] [address] 10/17/2022 10:02:57 10/17/2022 10:36:36 Adult health examination 020123260 Z00.01 well exam completed Benign ess ential hypertension 6502420 I10 stable on HCTZ 12.5mg daily. Generalize d anxiety disorder 62465985 F41.1 stable. Hyperlipidemia 78865508 E78.5 pt has been working on dietary management for lipids. Degenerati on of cervical intervertebral disc [id number] M50.30 hx noted. Multiple sclerosis 00734 007 G35 to see Neurology Long-term drug therapy [id number] Z79.899 CBC, CMP and TFTs due Diabetes m ellitus screening [id number] Z13.1 screening diabetes ordered Screening mammography 24 [id number] Z12.31 mammogram due in november. Cervical radiculopathy 14999400 M54.12 check MRI cspine after completing xray Pain in right arm 281443 004 M79.601 radicular from neck [id number] CHEN Krause [facility] [place] [address] [place] [address] 05/06/2023 10:43:16 05/06/2023 12:43:49 Cervical radiculopathy [id number] M54.12 seeing pain management . has had epidural injections . Multiple sclerosis 93185 007 G35 to see Neurology in [facility] but she has not scheduled yet. Is not on tx any longer. [facility] is not seeing M.S. patients now. Benign ess ential hypertension 5965200 I10 stable on HCTZ 12.5mg daily. refilled [facility] anxiety disorder [id number] F41.1 stable. Hyperlipidemia 10594453 E78.5 pt has been working on dietary management for lipids. Degenerati on of cervical intervertebral disc 17864604 M50.30 hx noted. Long-term drug therapy [id number] Z79.899 routine labs are due, she did not complete them yet. Diabetes m ellitus screening [id number] Z13.1 screening diabetes ordered Postviral cough [id number] 4 B94.8 5 days course of prendisone 40mg daily to help with lingering cough Health Concerns Section Related Observation LastModified by Organization Detai ls LastModified Time None Recorded Concern Status LastModified by Organization Details LastModified Time None Recorded Advance Directives Directive None Recorded Payers Insurance Date Sequence Insurance Name Policy Number Policy [place] Covered Member ID [place] Member ID Guarantor Name 05/04/2023 1 [id number] [id number] Bebeto Nova [id number] Jessica Nova Notes Date Note Type Note Provider Name and Address Organization Details Recorded Time 11/24/19 22 text/htm l Rash/Skin LesionReported bypatient.Location:Rt breast top part Quality:not bleeding; decreasing in size; stable; 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;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;red; tender in breasts Severity:about the same Duration:has noted for 2-3 weeks Onset/Timing:recurring Context:no new detergents or skin products; no one else with similar rash;scratching Alleviating Factors:nothing gives relief Aggravating Factors:nothing makes it worse Associated Symptoms:no fever; no cold symptoms; no nausea; no vomiting; no diarrhea; no urinary symptoms; no chills; no fatigue; no change in weight Not Available [facility] 11/23/2021 11:17:03 04/11/20 22 text/htm l Anxiety/DepressionReported bypatient.Quality:symptoms improved Severity:denies suicidal ideations; able to maintain relationships; does not interfere with activities of daily living Duration:symptoms lasting over 2 weeks; stablizing Onset/Timing:still present Context:no major life stressors Modifying Factors:medications as directed Associated Symptoms:denies homicidal ideations; no significant weight gain; no significant weight loss; no visual/auditory hallucinations; no delusions; no shortness of breath; mood good; no anxiety; no crying spells; no panic; no isolation; sleeping well; appetite good; energy good; no apathy; maintaining functionality Generic HPI TemplateReported bypatient.Notes:Multiple Sclerosis patient but no recent treatment of f/u with a 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.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 darcy bypatient.Duration:chronic Control:usually well controlled Compliance:compliant;noncomplia nt with diet;does not exercise Complications:no coronary artery disease; no peripheral artery disease; no cardiovascular disease Risk Factors:hypertension;smokingHyp ertensionReported bypatient.Duration:has noted for years Onset/Timing:better Alleviating Factors:medication Self Care:not under emotional stress Associated Symptoms:no shortness of breath; no fatigue; no palpitations; no decline in exercise capacity; no snoring Not Available [employer] 04/26/2022 12:05:38 05/22/19 23 text/htm l Abdominal PainReported bypatient.Location:[facility] Quality:aching;dull Severity:pain level 2/10 Duration:intermittent Onset/Timing:sudden Aggravating Factors:leaning forward Associated Symptoms:no fever; no chills; no blood in the urine; no heartburn; no shortness of breath; no nausea; no vomiting; no diarrhea; no constipation; normal stool; no blood in stool; normal appetite Other:uses control Pain Radiation:around the back;through the back Not Available [employer] 05/29/2022 16:55:39 10/18/19 23 text/htm l Anxiety/DepressionReported bypatient.Quality:doesnt matter time of day. Severity:denies suicidal ideations; able to maintain relationships;interference with household activities;interference with sleep;interference with work Duration:symptoms lasting over 2 weeks Onset/Timing:still present Context:no major life stressors Associated Symptoms:denies homicidal ideations; no significant weight gain; no significant weight loss; no visual/auditory hallucinations; no delusions; no shortness of breathGeneric HPI TemplateReported bypatient.Notes:Multiple Sclerosis patient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ted bypatient.Duration:chronic Control:usually well controlled Compliance:compliant;noncomplia nt with diet;does not exercise Complications:no coronary artery disease; no peripheral artery disease; no cardiovascular disease Risk Factors:hypertension;smokingHyp ertensionReported bypatient.Duration:has noted for years Onset/Timing:better Alleviating Factors:medication Associated Symptoms:no shortness of breath; no fatigue; no palpitations; no decline in exercise capacity; no snoring [facility] CHEN Krause [address] [facility] [address], [place], [address], [employer] 10/26/2022 19:32:56 05/06/19 24 text/htm l Anxiety/DepressionReported bypatient.Severity:denies suicidal ideations; able to maintain relationships; does not interfere with activities of daily living Duration:symptoms lasting over 2 weeks Onset/Timing:still present Context:no major life stressors Associated Symptoms:denies homicidal ideations; no significant weight gain; no significant weight loss; no visual/auditory hallucinations; no delusions; no shortness of breath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ted bypatient.Duration:chronic Control:usually well controlled Compliance:compliant;noncomplia nt with diet;does not exercise Complications:no coronary artery disease; no peripheral artery disease; no cardiovascular disease Risk Factors:hypertensionHypertensio nReported bypatient.Duration:has noted for years Onset/Timing:better Alleviating Factors:medication Associated Symptoms:no shortness of breath; no fatigue; no palpitations; no decline in exercise capacity; no snoring CHEN Krause [address] [address], [place], [address], [place] [facility] 05/06/2023 13:12:36 OBGyn Episode No OBEpisode recorded.
--- OUTSIDE RECORDS SUMMARY | 2024-10-14 08:29 | XMS_ITS | Data Portability ---
Author Organization [facility] Address [address] [place] [address] Care Team Providers Care Supply Officer Name Role Phone VIOLETTA MERINO Primary Care Provider Unavailab le Assessment No assessment recorded. Plan of Treatment Reminders Order Date Submit Date Provider Last Modified By Organization Details Last Modified Time Details Appointments ANY 15 2024 09:30A M CHEN Krause Not available Not available Not available Lab TSH + free T4, serum 2024 025 [facility], [address], [place], [address], 09/09/2024 14:41:02 CBC w/ auto diff 2024 025 [employer] [facility], [address], [place], [address], 09/09/2024 14:42:12 CMP, serum or plasma 2024 025 [facility], [address], [place], [address], 09/09/2024 14:41:44 vitami n B12 + folate , serum or blood 2024 025 [facility], [address], [place], [address], 09/09/2024 14:43:19 urinal ysis, dipsti ck, reflex micro 04/23/ 2025 04/23/2 025 [facility] [employer] [facility], [address], [place], [address], 09/09/2024 14:42:41 HbA1c (hemog lobin A1c), blood 2024 025 [facility] [employer] [facility], [address], [place], [address], 09/09/2024 14:41:57 lipid panel, serum 2024 025 [facility] [employer] [facility], [address], [place], [address], 09/09/2024 14:41:28 vitami n D, 25-hyd frederic, total, serum 2024 025 [facility] [employer] [facility], [address], [place], [address], 09/09/2024 14:46:43 insuli n, serum 2024 025 [facility] [employer] [facility], [address], [place], [address], 09/09/2024 14:43:36 TSH + free T4, serum 2023 024 [email or web address] [facility], [address], [place], [address], 08/05/2024 10:43:40 CBC w/ auto diff 2023 024 [email or web address] [facility], [address], [place], [address], 08/05/2024 10:43:39 CMP, serum or plasma 2023 024 [email or web address], [address], [place], [address], 08/05/2024 10:43:39 vitami n B12 + folate , serum or blood 2023 [email or web address] [employer] [facility], [address], [place], [address], 08/05/2024 10:43:39 urinal ysis, dipsti ck, reflex micro 2023 [employer]ma [employer] [facility], [address], [place], [address], 08/05/2024 10:43:39 lipid panel, serum [address] [email or web address], [address], [place], [address], 08/05/2024 10:43:39 vitami n D, 25-hyd frederic, total, serum 2023 [email or web address] [employer] [facility], [address], [place], [address], 09/09/2024 14:46:43 HbA1c (hemog lobin A1c), blood [address] 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 Estill now 2019 020 [facility] (Lab), [address] [place], [address], 10/13/2019 15:03:50 Referral None record ed. Procedures nerve conduc tion study/ EMG, upper extrem ity (PROC) [address] (Cardiology & Emg), [address] [place] [address] [place] [address], [address], 09/30/2024 14:07:06 Surgeries None record ed. Imaging MAMMO, screen ing, digita l, bilate ral 2024 025 [facility] (Mammography) , [address], [place], [address], 08/19/2024 11:20:35 PFT, comple te - with and withou t bronch odilat or. 2024 025 [facility] (Resp Services), [address] [place] [address], [address], 09/09/2024 14:39:20 PFT, comple te - with and withou t bronch odilat or. 2023 024 [facility] (Resp Services), [address] [place] [address], [address], 10/07/2024 12:44:03 Medication Orders hydroc hlorot hiazid e 12.5 mg tablet [address] [facility]/Pharmacy #[id number], [address] [place], [address], 08/19/2024 10:48:54 ibupro fen 800 mg tablet [address] [facility]/Pharmacy #[id number], [address] [place], [address], 08/19/2024 10:48:54 triamc inolon e aceton darren 0.5 % topica l cream 2024 025 [id number] [address] [place], [address], 08/19/2024 10:46:49 baclof en 10 mg tablet 2024 025 [id number] [address] [place], [address], 08/19/2024 10:48:54 ergoca lcifer ol (vitam in D2) 1,250 mcg (50,00 0 unit) capsul e 2024 025 [id number] [address] [place], [address], 08/19/2024 10:48:54 albute rol sulfat e HFA 90 mcg/ac tuatio n aeroso l inhale r 2023 024 [id number] [address] [place], [address], 02/19/2024 10:28:17 Patient TargetsNo targets recorded. Patient Instructions Encounter Date Encounter Id Patient Instructions Last Modified By Organization Details Last Modified Time 10/07/2019 [id number] Reviewed the following recommendations: -Stay home and separate from others as much as possible. -Monitor your symptoms and seek medical attention for trouble breathing, persistent chest pain, confusion, or bluish lips or face. -Wear a mask if you must be around other people. -Wash your hands often for 20 seconds with soap and water and clean high-touch surfaces daily -You may discontinue home isolation if your symptoms are improving and it has been 10 days since symptoms started. [email or web address] Not available 10/07/2019 16:37:40 02/19/2024 [id number] Quitting Tobacco: Care Instructions Not available 02/19/2024 10:28:02 A healthy lifestyle: care instructions Not available 02/19/2024 10:28:02 08/19/2024 [id number] Quitting Tobacco: Care Instructions Not available 08/19/2024 10:46:46 A healthy lifestyle: care instructions Not available 09/02/2024 01:30:59 Reason for Referral None Reported. 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 A negat olman resul t does not precl ude the possi bilit y of 2019- nCoV infec tion since the adequ acy of sampl e colle ction and/o r low viral burde n may resul t in the prese nce of viral nucle ic acids level s below the laura tical sensi tivit y of this test metho d. 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 This test is only autho rized for the durat ion of the decla ratio n and the circu mstan pratibha that exist to justi fy the autho rizat ion of the emerg ency use of in vitro diagn ostic tests for the detec tion of SARS- CoV-2 virus and/o r diagn osis of COVID -19 infec tion under secti on 564 (b) (1) of the Act. 11 U.S.C . 360bb b-3 (b) (1), unles s the autho rizat ion is termi nated or revok ed soone r. 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 This testi ng [facility] [place] [address] (CLIA Licen se #[id number] 5, CAP #[id number], AU-ID #[id number]). 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, respi rator y speci men covidcom6 Facts heet for healt hcare provi ders: https ://[employer].Jarvam .gov/ media /1362 56/do wnloa d Facts heet for patie nts: https ://[employer].Jarvam .gov/ media /1362 57/do wnloa d Not Available [facility] (Lab) [address] [place], [address], 10/27/2019 18:03:58 03/14/20 22 03/14/2022 pap test, thinp rep, cervi shahab Pap thinprep negati ve Not Available Not Available 16:47:23 03/19/20 22 03/20/2022 Free T4 and TSH panel - Serum or Plasm a thyrotropin [units/volum e] in serum or plasma TSH Not Available Not Available 14:10:13 03/19/20 22 03/20/2022 Free T4 and TSH panel - Serum or Plasm a thyroxine (T4) free [mass/volume ] in serum or plasma T4, free Not Available Not Available 07/31/2024 14:10:13 03/19/20 22 03/20/2022 Lipid 1996 panel - Serum or Plasm a cholesterol [mass/volume ] in serum or plasma ciara stero l, total Not Available Not Available 07/31/2024 14:10:13 03/19/20 22 03/20/2022 Lipid 1996 panel - Serum or Plasm a cholesterol in HDL [mass/volume ] in serum or plasma low HDL ciara stero l Not Available Not Available 07/31/2024 14:10:13 03/19/20 22 03/20/2022 Lipid 1996 panel - Serum or Plasm a triglyceride [mass/volume ] in serum or plasma high trigl yceri antonella Not Available Not Available 07/31/2024 14:10:13 03/19/20 22 03/20/2022 Lipid 1996 panel - Serum or Plasm a cholesterol in LDL [mass/volume ] in serum or plasma by calculation high LDL-c holes terol Not Available Not Available 07/31/2024 14:10:13 03/19/20 22 03/20/2022 Lipid 1996 panel - Serum or Plasm a cholesterol. total/choles terol in HDL [mass ratio] in serum or plasma chol/ HDLC ratio Not Available Not Available 07/31/2024 14:10:13 03/19/20 22 03/20/2022 Lipid 1996 panel - Serum or Plasm a cholesterol in LDL/choleste rol in HDL [mass ratio] in serum or plasma LDL/H DL ratio Not Available Not Available 07/31/2024 14:10:13 03/19/20 22 03/20/2022 Lipid 1996 panel - Serum or Plasm a cholesterol non HDL [mass/volume ] in serum or plasma high non HDL ciara stero l Not Available Not Available 07/31/2024 14:10:13 03/19/20 22 03/20/2022 Compr ehens olman metab olic 2000 panel - Serum or Plasm a glucose [mass/volume ] in serum or plasma gluco se Not Available Not Available 07/31/2024 14:10:12 03/19/20 22 03/20/2022 Compr ehens olman metab olic 2000 panel - Serum or Plasm a urea nitrogen [mass/volume ] in serum or plasma urea nitro gen (BUN) Not Available Not Available 07/31/2024 14:10:12 03/19/20 22 03/20/2022 Compr ehens olman metab olic 2000 panel - Serum or Plasm a creatinine [mass/volume ] in serum or plasma high creat inine Not Available Not Available 07/31/2024 14:10:12 03/19/20 22 03/20/2022 Compr ehens olman metab olic 2000 panel - Serum or Plasm a glomerular filtration rate [volume rate/area] in serum, plasma or blood by creatinine-b ased formula (CKD-epi 2020)/1.73 sq M eGFR Not Available Not Available 07/2024 14:10:12 03/19/20 22 03/20/2022 Compr [employer] olman metab olic 1999 panel - Serum or Plasm a urea nitrogen/cre atinine [mass ratio] in serum or plasma BUN/c reati nine ratio Not Available Not Available 07/31/2024 14:10:12 03/19/20 22 03/20/2022 Compr ehens olman metab olic 1999 panel - Serum or Plasm a sodium [moles/volum e] in serum or plasma sodiu m Not Available Not Available 07/31/2024 14:10:12 03/19/20 22 03/20/2022 Compr ehens olman metab olic 1999 panel - Serum or Plasm a potassium [moles/volum e] in serum or plasma potas sium Not Available Not Available 07/31/2024 14:10:12 03/19/20 22 03/20/2022 Compr [employer] olman metab olic 1999 panel - Serum or Plasm a chloride [moles/volum e] in serum or plasma chlor darren Not Available Not Available 07/31/2024 14:10:12 03/19/20 22 03/20/2022 Compr [employer] olman metab olic 1999 panel - Serum or Plasm a carbon dioxide, total [moles/volum e] in serum or plasma carbo n dioxi de Not Available Not Available 07/31/2024 14:10:12 03/19/20 22 03/20/2022 Compr [employer] olman metab olic 1999 panel - Serum or Plasm a calcium [mass/volume ] in serum or plasma calci um Not Available Not Available 07/31/2024 14:10:12 03/19/20 22 03/20/2022 Compr ehens olman metab olic 1999 panel - Serum or Plasm a protein [mass/volume ] in serum or plasma prote in, total Not Available Not Available 07/31/2024 14:10:12 03/19/20 22 03/20/2022 Compr ehens olman metab olic 1999 panel - Serum or Plasm a albumin [mass/volume ] in serum or plasma album in Not Available Not Available 07/31/2024 14:10:12 03/19/20 22 03/20/2022 Compr ehens olman metab olic 1999 panel - Serum or Plasm a globulin [mass/volume ] in serum by calculation globu harpal Not Available Not Available 07/31/2024 14:10:12 03/19/20 22 03/20/2022 [facility] panel - Serum or Plasm a albumin/glob ulin [mass ratio] in serum or plasma album in/gl obuli n ratio Not Available Not Available 07/31/2024 14:10:12 03/19/20 22 03/20/[address] [facility] 1999 panel - Serum or Plasm a bilirubin.to silas [mass/volume ] in serum or plasma bilir ubin, total Not Available Not Available 07/31/2024 14:10:12 03/19/20 22 03/20/2022 [facility] 1999 panel - Serum or Plasm a alkaline phosphatase [enzymatic activity/vol ume] in serum or plasma alkal ine phosp hatas e Not Available Not Available 07/31/2024 14:10:12 03/19/20 22 03/20/[address] [facility] 1999 panel - Serum or Plasm a aspartate aminotransfe rase [enzymatic activity/vol ume] in serum or plasma AST Not Available Not Available 07/2024 14:10:12 03/19/2003/20/2022 [facility] [place] [address] panel - Serum or Plasm a alanine aminotransfe rase [enzymatic activity/vol ume] in serum or plasma ALT Not Available Not Available 07/2024 14:10:12 03/19/2003/20/2022 Hemog lobin A1c/H emogl obin. total in Blood hemoglobin A1C/hemoglob in.total in blood hemog lobin A1C Not Available Not Available 07/31/2024 14:10:12 03/19/20 22 03/20/2022 25-Hy droxy vitam in D3+25 -Hydr oxyvi tamin D2 [Mass /volu me] in Serum or Plasm a 25-hydroxyvi tamin D3 [mass/volume ] in serum or plasma vitam in D,25- oh,to silas,i a Not Available Not Available 07/31/2024 14:10:12 03/19/20 22 03/20/2022 CBC W Auto Diffe renti al panel - Blood leukocytes [#/volume] in blood by automated count white blood cell count Not Available Not Available 07/31/2024 14:10:12 03/19/20 22 03/20/2022 CBC W Auto Diffe renti al panel - Blood erythrocytes [#/volume] in blood by automated count red blood cell count Not Available Not Available 07/31/2024 14:10:12 03/19/20 22 03/20/2022 CBC W Auto Diffe renti al panel - Blood hemoglobin [mass/volume ] in blood high hemog lobin Not Available Not Available 07/31/2024 14:10:12 03/19/20 22 03/20/2022 CBC W Auto Diffe renti al panel - Blood hematocrit [volume fraction] of blood by automated count high hemat ocrit Not Available Not Available 07/31/2024 14:10:12 03/19/20 22 03/20/2022 CBC W Auto Diffe renti al panel - Blood MCV [entitic mean volume] in red blood cells by automated count MCV Not Available Not Available 07/2024 14:10:12 03/19/20 22 03/20/2022 CBC W Auto Diffe renti al panel - Blood MCH [entitic mass] by automated count MCH Not Available Not Available 07/2024 14:10:12 03/19/20 22 03/20/2022 CBC W Auto Diffe renti al panel - Blood MCHC [entitic mass/volume] in red blood cells by automated count MCHC Not Available Not Available 07/2024 14:10:12 03/19/20 22 03/20/2022 CBC W Auto Diffe renti al panel - Blood erythrocyte [distwidth] in red blood cells by automated count RDW Not Available Not Available 07/2024 14:10:12 03/19/20 22 03/20/2022 CBC W Auto Diffe renti al panel - Blood platelets [#/volume] in blood by automated count plate let count Not Available Not Available 07/31/2024 14:10:12 03/19/20 22 03/20/2022 CBC W Auto Diffe renti al panel - Blood platelet [entitic mean volume] in blood by nola-ramos MPV Not Available Not Available 0 07/31/2024 14:10:12 03/19/20 22 03/20/2022 CBC W Auto Diffe renti al panel - Blood neutrophils [#/volume] in blood by automated count absol alutiiq neutr ophil s Not Available Not Available 07/31/2024 14:10:12 03/19/20 22 03/20/2022 CBC W Auto Diffe renti al panel - Blood lymphocytes [#/volume] in blood by automated count absol alutiiq lymph ocyte s Not Available Not Available 07/31/2024 14:10:12 03/19/20 22 03/20/2022 CBC W Auto Diffe renti al panel - Blood monocytes [#/volume] in blood by automated count absol alutiiq monoc ytes Not Available Not Available 07/31/2024 14:10:12 03/19/20 22 03/20/2022 CBC W Auto Diffe renti al panel - Blood eosinophils [#/volume] in blood by automated count absol alutiiq eosin ophil s Not Available Not Available 07/31/2024 14:10:12 03/19/20 22 03/20/2022 CBC W Auto Diffe renti al panel - Blood basophils [#/volume] in blood by automated count absol alutiiq basop hils Not Available Not Available 07/31/2024 14:10:12 03/19/20 22 03/20/2022 CBC W Auto Diffe renti al panel - Blood neutrophils/ leukocytes in blood by automated count neutr ophil s Not Available Not Available 07/31/2024 14:10:12 03/19/20 22 03/20/2022 CBC W Auto Diffe renti al panel - Blood lymphocytes/ leukocytes in blood by automated count lymph ocyte s Not Available Not Available 07/31/2024 14:10:12 03/19/20 22 03/20/2022 CBC W Auto Diffe renti al panel - Blood monocytes/le ukocytes in blood by automated count monoc ytes Not Available Not Available 07/31/2024 14:10:12 03/19/20 22 03/20/2022 CBC W Auto Diffe renti al panel - Blood eosinophils/ leukocytes in blood by automated count eosin ophil s Not Available Not Available 07/31/2024 14:10:12 03/19/20 22 03/20/2022 CBC W Auto Diffe renti al panel - Blood basophils/le ukocytes in blood by automated count basop hils Not Available Not Available 07/31/2024 14:10:12 05/16/19 24 05/17/2023 CBC W Auto Diffe renti al panel - Blood leukocytes [#/volume] in blood by automated count white blood cell count Not Available Not Available 07/31/2024 14:10:13 05/16/19 24 05/17/2023 CBC W Auto Diffe renti al panel - Blood erythrocytes [#/volume] in blood by automated count red blood cell count Not Available Not Available 07/31/2024 14:10:13 05/16/19 24 05/17/2023 CBC W Auto Diffe renti al panel - Blood hemoglobin [mass/volume ] in blood high hemog lobin Not Available Not Available 07/31/2024 14:10:13 05/16/19 24 05/17/2023 CBC W Auto Diffe renti al panel - Blood hematocrit [volume fraction] of blood by automated count high hemat ocrit Not Available Not Available 07/31/2024 14:10:13 05/16/19 24 05/17/2023 CBC W Auto Diffe renti al panel - Blood MCV [entitic mean volume] in red blood cells by automated count MCV Not Available Not Available 07/2024 14:10:13 05/16/19 24 05/17/2023 CBC W Auto Diffe renti al panel - Blood MCH [entitic mass] by automated count MCH Not Available Not Available 07/2024 14:10:13 05/16/19 24 05/17/2023 CBC W Auto Diffe renti al panel - Blood MCHC [entitic mass/volume] in red blood cells by automated count MCHC Not Available Not Available 07/2024 14:10:13 05/16/19 24 05/17/2023 CBC W Auto Diffe renti al panel - Blood erythrocyte [distwidth] in red blood cells by automated count RDW Not Available Not Available 07/2024 14:10:13 05/16/19 24 05/17/2023 CBC W Auto Diffe renti al panel - Blood platelets [#/volume] in blood by automated count plate let count Not Available Not Available 07/31/2024 14:10:13 05/16/19 24 05/17/2023 CBC W Auto Diffe renti al panel - Blood platelet [entitic mean volume] in blood by jonah MPV Not Available Not Available 0 07/31/2024 14:10:13 05/16/19 24 05/17/2023 CBC W Auto Diffe renti al panel - Blood neutrophils [#/volume] in blood by automated count absol alutiiq neutr ophil s Not Available Not Available 07/31/2024 14:10:13 05/16/19 24 05/17/2023 CBC W Auto Diffe renti al panel - Blood lymphocytes [#/volume] in blood by automated count absol alutiiq lymph ocyte s Not Available Not Available 07/31/2024 14:10:13 05/16/19 24 05/17/2023 CBC W Auto Diffe renti al panel - Blood monocytes [#/volume] in blood by automated count absol alutiiq monoc ytes Not Available Not Available 07/31/2024 14:10:13 05/16/19 24 05/17/2023 CBC W Auto Diffe renti al panel - Blood eosinophils [#/volume] in blood by automated count absol alutiiq eosin ophil s Not Available Not Available 07/31/2024 14:10:13 05/16/19 24 05/17/2023 CBC W Auto Diffe renti al panel - Blood basophils [#/volume] in blood by automated count absol alutiiq basop hils Not Available Not Available 07/31/2024 14:10:13 05/16/19 24 05/17/2023 CBC W Auto Diffe renti al panel - Blood neutrophils/ leukocytes in blood by automated count neutr ophil s Not Available Not Available 07/31/2024 14:10:13 05/16/19 24 05/17/2023 CBC W Auto Diffe renti al panel - Blood lymphocytes/ leukocytes in blood by automated count lymph ocyte s Not Available Not Available 07/31/2024 14:10:13 05/16/19 24 05/17/2023 CBC W Auto Diffe renti al panel - Blood monocytes/le ukocytes in blood by automated count monoc ytes Not Available Not Available 07/31/2024 14:10:13 05/16/19 24 05/17/2023 CBC W Auto Diffe renti al panel - Blood eosinophils/ leukocytes in blood by automated count eosin ophil s Not Available Not Available 07/31/2024 14:10:13 05/16/19 24 05/17/2023 CBC W Auto Diffe renti al panel - Blood basophils/le ukocytes in blood by automated count basop hils Not Available Not Available 07/31/2024 14:10:13 05/16/19 24 05/17/2023 Hemog lobin A1c/H emogl obin. total in Blood hemoglobin A1C/hemoglob in.total in blood hemog lobin A1C Not Available Not Available 07/31/2024 14:10:13 05/16/19 24 05/17/2023 Compr ehens olman metab olic 2000 panel - Serum or Plasm a glucose [mass/volume ] in serum or plasma gluco se Not Available Not Available 07/31/2024 14:10:13 05/16/19 24 05/17/2023 Compr ehens olman metab olic 2000 panel - Serum or Plasm a urea nitrogen [mass/volume ] in serum or plasma urea nitro gen (BUN) Not Available Not Available 07/31/2024 14:10:13 05/16/19 24 05/17/2023 Compr ehens olman metab olic 2000 panel - Serum or Plasm a creatinine [mass/volume ] in serum or plasma creat inine Not Available Not Available 07/31/2024 14:10:13 05/16/19 24 05/17/2023 Compr ehens olman metab olic 2000 panel - Serum or Plasm a glomerular filtration rate [volume rate/area] in serum, plasma or blood by creatinine-b ased formula (CKD-epi 2020)/1.73 sq M eGFR Not Available Not Available 07/2024 14:10:13 05/16/19 24 05/17/2023 Compr ehens olman metab olic 2000 panel - Serum or Plasm a urea nitrogen/cre atinine [mass ratio] in serum or plasma SEE NOTE: BUN/c reati nine ratio Not Available Not Available 07/31/2024 14:10:13 05/16/19 24 05/17/2023 Compr ehens olman metab olic 1999 panel - Serum or Plasm a sodium [moles/volum e] in serum or plasma sodiu m Not Available Not Available 07/31/2024 14:10:13 05/16/19 24 05/17/2023 Compr ehens olman metab olic 1999 panel - Serum or Plasm a potassium [moles/volum e] in serum or plasma potas sium Not Available Not Available 07/31/2024 14:10:13 05/16/19 24 05/17/2023 Compr ehens olman metab olic 1999 panel - Serum or Plasm a chloride [moles/volum e] in serum or plasma chlor darren Not Available Not Available 07/31/2024 14:10:13 05/16/19 24 05/17/2023 Compr [employer] ol[employer] metab olic 1999 panel - Serum or Plasm a carbon dioxide, total [moles/volum e] in serum or plasma carbo n dioxi de Not Available Not Available 07/31/2024 14:10:13 05/16/19 24 05/17/2023 Compr [employer] olman metab olic 1999 panel - Serum or Plasm a calcium [mass/volume ] in serum or plasma calci um Not Available Not Available 07/31/2024 14:10:13 05/16/19 24 05/17/2023 Compr [employer] ol[facility] metab olic 1999 panel - Serum or Plasm a protein [mass/volume ] in serum or plasma prote in, total Not Available Not Available 07/31/2024 14:10:13 05/16/19 24 05/17/2023 Compr [employer] ol[facility] metab olic 1999 panel - Serum or Plasm a albumin [mass/volume ] in serum or plasma album in Not Available Not Available 07/31/2024 14:10:13 05/16/19 24 05/17/2023 Compr ehens olman metab olic 1999 panel - Serum or Plasm a globulin [mass/volume ] in serum by calculation globu harpal Not Available Not Available 07/31/2024 14:10:13 05/16/19 24 05/17/2023 Compr [employer] ol[facility] metab olic 1999 panel - Serum or Plasm a albumin/glob ulin [mass ratio] in serum or plasma album in/gl obuli n ratio Not Available Not Available 07/31/2024 14:10:13 05/16/19 24 05/17/2023 Compr ehens olman metab olic 1999 panel - Serum or Plasm a bilirubin.to silas [mass/volume ] in serum or plasma bilir ubin, total Not Available Not Available 07/31/2024 14:10:13 05/16/19 24 05/17/2023 Compr ehens olman metab olic 1999 panel - Serum or Plasm a alkaline phosphatase [enzymatic activity/vol ume] in serum or plasma alkal ine phosp hatas e Not Available Not Available 07/31/2024 14:10:13 05/16/19 24 05/17/2023 Compr ehens olman metab olic 1999 panel - Serum or Plasm a aspartate aminotransfe rase [enzymatic activity/vol ume] in serum or plasma AST Not Available Not Available 07/2024 14:10:13 05/16/19 24 05/17/2023 Compr ehens olman metab olic 1999 panel - Serum or Plasm a alanine aminotransfe rase [enzymatic activity/vol ume] in serum or plasma ALT Not Available Not Available 07/2024 14:10:13 05/16/19 24 05/17/2023 Lipid 1995 panel - Serum or Plasm a cholesterol [mass/volume ] in serum or plasma high ciara stero l, total Not Available Not Available 07/31/2024 14:10:13 05/16/19 24 05/17/2023 Lipid 1996 panel - Serum or Plasm a cholesterol in HDL [mass/volume ] in serum or plasma low HDL ciara stero l Not Available Not Available 07/31/2024 14:10:13 05/16/19 24 05/17/2023 Lipid 1996 panel - Serum or Plasm a triglyceride [mass/volume ] in serum or plasma high trigl yceri antonella Not Available Not Available 07/31/2024 14:10:13 05/16/19 24 05/17/2023 Lipid 1996 panel - Serum or Plasm a cholesterol in LDL [mass/volume ] in serum or plasma by calculation high LDL-c holes terol Not Available Not Available 07/31/2024 14:10:13 05/16/19 24 05/17/2023 Lipid 1996 panel - Serum or Plasm a cholesterol. total/choles terol in HDL [mass ratio] in serum or plasma high chol/ HDLC ratio Not Available Not Available 07/31/2024 14:10:13 05/16/19 24 05/17/2023 Lipid 1996 panel - Serum or Plasm a cholesterol in LDL/choleste rol in HDL [mass ratio] in serum or plasma LDL/H DL ratio Not Available Not Available 07/31/2024 14:10:13 05/16/19 24 05/17/2023 Lipid 1996 panel - Serum or Plasm a cholesterol non HDL [mass/volume ] in serum or plasma high non HDL ciara stero l Not Available Not Available 07/31/2024 14:10:13 05/16/19 24 05/17/2023 Free T4 and TSH panel - Serum or Plasm a thyrotropin [units/volum e] in serum or plasma TSH Not Available Not Available 14:10:13 05/16/19 24 05/17/2023 Free T4 and TSH panel - Serum or Plasm a thyroxine (T4) free [mass/volume ] in serum or plasma T4, free Not Available Not Available 07/31/2024 14:10:13 Result Notes None recorded. Problems Name Problem SNOMED Code Status Onset Date Resolution Date Notes Provider Name and Address Organization Details Recorded Time Body mass index 30+ - obesity 121592693 Active 2023 Melissa Claros MA [facility], [place] - [place] 4 09:57:53 Degeneratio n of cervical interverteb ral disc 83828714 Active 2023 CHEN Krause Attn: Rita yuen,[address] [place], [address], [facility] - [facility] 4 10:22:43 Cervical radiculopat hy 88636164 Active 2023 CHEN Krause Attn: Rita yuen,[address] [place], [address], [facility] - [place] 4 10:22:44 Vitamin D deficiency 73893724 Active 2023 CHEN Krause Attn: Rita yuen,[address] [place], [address], [place] - [facility] 4 10:22:45 Smoker 45648820 Active 2023 CHEN Krause Attn: Bethanymely yuen,[address] [facility], [place], [address], [place] [facility] 4 10:22:48 Long-term drug therapy Active 2023 CHEN Krause Attn: Rita g,[address] [place], [address], [place] [facility] 4 10:22:57 Multiple sclerosis 49220534 Active 2023 CHEN Krause Attn: Rita g,[address] [place], [address], [place] [facility] 4 10:22:58 Benign essential hypertensio n 7206448 Active 2023 CHEN Krause Attn: Rita g,[address] [place], [address], [place] [facility] 4 10:22:59 Obesity 658096452 Active 2023 CHEN Krause Attn: Rita yuen,[address] [place], [address], [place] [facility] 4 10:23:02 Positive screening for depression on PHQ-9 (Patient Health Questionnai re 9) 3937800642262 00 Active 2023 CHEN Krause Attn: Rita g,[address] [place], [address], [place] [facility] 5 01:29:21 Dyspnea 095810413 Active 2024 CHEN Krause Attn: Rita g,[address] [place], [address], [place] [facility] 5 01:29:53 Asthma 045815335 Active 2024 CHEN Krause Attn: Rita yuen,[address], [place], [address], [facility] [place] 5 01:29:55 Numbness of hand 980581197 Active 2024 CHEN Krause Attn: Rita yuen,[address] [facility], [place], [address], [facility] [place] 5 01:30:21 Problem Notes None recorded. Procedures Surgical History Date Name Laterality Status Provider Name and Address Organization Details Recorded Time cholecystectomy completed Melissa Claros MA [facility] 02/19/2024 09:56:20 Imaging Results None recorded. Procedure Notes None recorded. Medical Equipment None Reported. Allergies No known drug allergies Medications Name Sig Start Date Stop Date Status Note LastModified by Organization Details LastModified Time cyclobenzap rine 10 mg tablet 02/18 completed Not Available Not Available Not Available doxycycline hyclate 100 mg capsule 02/18 completed Not Available Not Available Not Available triamcinolo ne acetonide 0.5 % topical cream APPLY A THIN LAYER TO THE AFFECTED AREA(S) TO LEG AREA BY TOPICAL ROUTE 2 TIMES PER DAY NEEDED active Not Available Not Available No t Available ibuprofen 800 mg tablet TAKE 1 TABLET BY MOUTH TWICE A DAY NEEDED active Not Available Not Available No t Available prednisone 20 mg tablet TAKE 2 TABLETS BY MOUTH EVERY DAY FOR 5 DAYS 02/18 completed Not Available Not Available Not Available baclofen 10 mg tablet TAKE 1 TABLET BY MOUTH AT BEDTIME NEEDED active Not Available Not Available No t Available hydrocortis one 2.5 % topical cream 02/18 completed Not Available Not Available Not Available ergocalcife rol (vitamin D2) 1,250 mcg (50,000 unit) capsule TAKE 1 CAPSULE BY MOUTH ONE TIME PER WEEK active Not Available Not Available No t Available albuterol sulfate HFA 90 mcg/actuati on aerosol inhaler INHALE 2 PUFFS EVERY 4 HOURS BY INHALATIO N ROUTE NEEDED active Not Available Not Available No t Available cefdinir 300 mg capsule 02/18 completed Not Available Not Available Not Available amoxicillin 875 mg-potassiu m clavulanate 125 mg tablet TAKE 1 TABLET BY MOUTH EVERY 12 HOURS 02/18 completed Not Available Not Available Not Available Fish Oil active otc Not Available Not Avai lable Not Available hydrochloro thiazide 12.5 mg tablet TAKE 1 TABLET BY MOUTH EVERY DAY active Not Available Not Available No t Available Vitals Date Recorded Respiratory rate Systolic blood pressure Diastolic blood pressure Provider Name and Address Organization Details Last Updated DateTime 08/19/2024 18 /min 130 mm[Hg] 80 mm[Hg] CHEN Krause Attn: [employer], [address] [place], [address], [facility] 08/19/2024 10:46:00 Date Recorded Body height Body mass index (BMI) Body weight Oxygen saturation Oxygen saturation in Arterial blood by Pulse oximetry Heart rate Systolic blood pressure Diastolic blood pressure Provider Name and Address Organization Details Last Updated DateTime 162.56 cm 36.7 kg/m2 88331.7 7 g 97 % 97 % 60 /min 138 mm[Hg] 82 mm[Hg] Melissa Claros MA [facility] 10:22:07 Date Recorded Systolic blood pressure Diastolic blood pressure Provider Name and Address Organization Details Last Updated DateTime 02/19/2024 130 mm[Hg] 82 mm[Hg] CHEN Krause Attn: [employer],[address] [place], [address], [facility] 02/19/2024 10:27:40 Date Recorded Body weight Respiratory rate Body mass index (BMI) Body height Oxygen saturation Oxygen saturation in Arterial blood by Pulse oximetry Heart rate Systolic blood pressure Diastolic blood pressure Provider Name and Address Organization Details Last Updated DateTime 00266.7 7 g 18 /min 36.7 kg/m2 162.56 cm 98 % 98 % 60 /min 138 mm[Hg] 88 mm[Hg] Melissa Claros MA [facility] 4 09:59:23 Social History Question Answer Notes LastModified by Organizat ion Details LastModified Time Tobacco Smoking Status Current Every Day Smoker Melissa Claros MA null, [facility] 02/19/2024 09:57:09 Do You Have An Advance Directive? No Information not available 02/19/2024 Are You Blind Or Do You Have Difficulty Seeing? No Information not available 02/19/2024 What Is Your Level Of Caffeine Consumption? Moderate Information not available 02/19/2024 In The 14 Days Before Symptom Onset, Have You Had Close Contact With A Laboratory-confir med COVID-19 While That Case Was Ill? No Information not available 02/19/2024 In The 14 Days Before Symptom Onset, Have You Had Close Contact With A Person Who Is Under Investigation For COVID-19 While That Person Was Ill? No Information not available 02/19/2024 Have You Been To An Area Known To Be High Risk For COVID-19? No Information not available 02/19/2024 Are You Deaf Or Do You Have Serious Difficulty Hearing? No Information not available 02/19/2024 What Type Of Diet Are You Following? REGULAR Information not available 02/19/2024 Are There Any Guns Present In Your Home? No Information not available 02/19/2024 What Was The Date Of Your Most Recent Tobacco Screening? 08/19/2024 Information not available 08/19/2024 What Is Your Current Pack Years? 20-29packyea rs Information not available 02/19/2024 Do You Use Your Seat Belt Or Car Seat Routinely? Yes Information not available 02/19/2024 Do You Have Smoke And Carbon Monoxide Detectors In Your Home? Yes Information not available 02/19/2024 How Much Tobacco Do You Smoke? 1 PPD Information not available 02/19/2024 Do You Use Sunscreen Routinely? No Sometimes Information not available 02/19/2024 Has Tobacco Cessation Counseling Been Provided? No Information not available 02/19/2024 Sex: Female Functional Status Question Answer Note LastModified by Organizat ion Details LastModified Time Do you use any illicit or recreational drugs? No Information not available 02/19/2024 Do you or have you ever used any other forms of tobacco or nicotine? No Information not available 02/19/2024 What is your level of alcohol consumption? Occasional Information not available 02/19/2024 Are you currently employed? No Information not available 02/19/2024 Are you able to care for yourself? Yes Information n ot available 02/19/2024 What is your exercise level? Occasional Information not available 02/19/2024 Mental Status Question Answer Note LastModified by Organization D etails LastModified Time Do you feel stressed (tense, restless, nervous, or anxious, or unable to sleep at night)? [id number] Information not available 02/19/2024 Family History Relationship Description Onset Age of this Age Resolved Age Notes LastModified by Organization Details LastModified Time Mother Depressive disorder [email or web address] Not available 2023 10:00:09 Mother Diabetes mellitus [email or web address] Not available 2023 10:00:15 Father Malignant neoplasm of bone [email or web address] Not available 2023 10:00:36 Medical History Condition Response Coronary Artery Disease N Other N Atrial Fibrillation N High Blood Pressure N Kidney or Bladder Problems N Thyroid Problems N GI Problems N Depression N COPD N Blood Clots N Have you had a mammogram in the last yea r? N Skin Problems N Anemia N Heart Attack ([place]) N Anxiety Disorder N Diabetes N Muscle, Joint, or Bone Problems N Seizures/Epilepsy N Have you had a colonoscopy in the last 1 0 years? N Acid Reflux (GERD) N Cancer N Stroke N Asthma N Allergies N Have you had a PSA blood test in the las t year? N High Cholesterol N Hepatitis N Liver Disease N Headaches N Heart Failure N Osteoporosis N Gynecological History Statement/Question Response Menses Monthly Y Duration of Flow (days) 7 Flow Moderate Date of LMP 08/15/2024 LMP Approximate Obstetrics History GPAL:G 3 P 2 0 0 2 Type Value Full Term 2 Induced 0 Spontaneous 0 Premature 0 Living 2 Total 3 Immunizations Vaccine Type Date Status Note Provider Nam e and Address Organization Details Recorded Time Influenza, recombinant, quadrivalent, PF 0 completed Melissa Claros [place], [place] [facility] 02/19/2024 09:57:36 MMR 8 completed Melissa Clar[place] [facility] 02/19/2024 09:57:36 MMR 1 completed Melissa Clar[place] [facility] 02/19/2024 09:57:36 COVID-19 vaccine, vector-nr, rS-Ad26, PF, 0.5 mL 1 completed Melissa Clar[place] [facility] 02/19/2024 09:57:36 COVID-19, mRNA, LNP-S, bivalent, PF, 30 mcg/0.3 mL dose 3 completed Melissa Clar[place] [facility] 02/19/2024 09:57:36 Tdap 5 completed Melissa Clar[place] [facility] 02/19/2024 09:57:36 DTP 6 completed Melissa Clar[place] [facility] 02/19/2024 09:57:36 DTP 7 completed Melissa [place] [facility] 02/19/2024 09:57:36 DTP 6 completed Melissa [place] [facility] 02/19/2024 09:57:36 DTP 8 completed Melissa [place] [facility] 02/19/2024 09:57:36 DTP 9 completed Melissa [place] [facility] 02/19/2024 09:57:36 OPV 6 completed Melissa [place] [facility] 02/19/2024 09:57:36 OPV 7 completed Melissa [place] [facility] 02/19/2024 09:57:36 OPV 6 completed Melissa [place] [facility] 02/19/2024 09:57:36 OPV 8 completed Melissa [place] [facility] 02/19/2024 09:57:36 OPV 9 completed Melissa [place] [facility] 02/19/2024 09:57:36 Influenza, split virus, trivalent, PF 4 completed KAREN Henry, [place] [facility] 02/19/2024 09:57:36 Td (adult), 2 Lf tetanus toxoid, preservative free, adsorbed 0 completed KAREN [place] [facility] 02/19/2024 09:57:36 Hep B, adolescent or pediatric 1 completed Melissa [place] [facility] 02/19/2024 09:57:36 Hep B, adolescent or pediatric 0 completed KAREN [place] [facility] 02/19/2024 09:57:36 Hep B, adolescent or pediatric 1 [place]AREN [place] [facility] 02/19/2024 09:57:36 Influenza, split virus, quadrivalent, PF 1 [place]AREN [place] [facility] 02/19/2024 09:57:36 Influenza, split virus, quadrivalent, PF 8 completed KAREN [place] [facility] 02/19/2024 09:57:36 Past Encounters Encounter ID Performer Location Encounter Start Date Encounter Closed Date Diagnosis/Indication Diagnosis SNOMED-CT Code Diagnosis ICD10 Code Diagnosis Note [id number] RON Granados [address] [place] [address] 10/07/2019 16:29:13 10/08/2019 09:38:46 Suspected COVID-19 581525889 Z03.818 D/w pt the current pandemic of COVID-19 and call for social isolation in order to blunt the curve and minimize risk and spread. Encouraged patient and family to take restrictio ns seriously. They have verbalized understand ing of such. Viral syndrome 169472758 B34.9 Coronavirus infection 18 5798690 B34.2 [id number] Eyal Cabrera MD [facility] e - [facility]ine Valentino [address] [place] [address] 02/19/2024 09:28:03 02/19/2024 10:31:50 Body mass index 30+ - obesity 666889026 Z68.36 BMI is 36.7. Fasting insulin level is ordered Obesity 930424247 E66.9 discussed healthy diet, exercise, controllin g carbohydra celia and added sugars in the diet Adult heal th examination 031523580 Z00.01 annual wellness exam Benign ess ential hypertension 5038864 I10 Stable on hydrochlor othiazide 12.5 mg daily Multiple sclerosis 28884 007 G35 did see Neurologis t this year at [facility], but MRI ordered and patient hasn't completed it yet so she hasn't been back to see her yet. Long-term drug therapy 627825814 Z79.891 All routine labs are ordered fasting Cholesterol screening 27 3548322 Z13.220 Fasting lipid panel due Diabetes m ellitus screening 861528328 Z13.1 A1c screening ordered Thyroid di sorder screening 685466389 Z13.29 Routine thyroid labs ordered Smoker 11128074 F17.200 Smoking cessation encouraged and resources offered. Dyspnea 932925344 R06.00 Refer for formal PFT with and without bronchodil ator to evaluate for asthma versus COPD versus overlappin g conditions . Vitamin D deficiency 347 64181 E55.9 Patient is due for updated vitamin-D lab with history of high-dose supplement ation Degenerati on of cervical intervertebral disc 86501917 M50.30 has seen pain management in [place] and had injections that were only temporary help. Cervical radiculopathy 72969702 M54.12 History noted Asthma 796719811 J45.90 9 Patient has albuterol inhaler for p.r.n. use. Questionab le history of asthma Positive s creening for depression on PHQ-9 (Patient Health Questionnaire 9) 1966044900 57032 Z13.31 Patient scored 11 on screening today. She does feel stable with her mental health no requests or questions or concerns. [id number] Eyal Cabrera MD [facility] [place] [address] [place] [address] 08/19/2024 10:07:02 08/19/2024 11:11:57 Body mass index 30+ - obesity 764269389 Z68.36 BMI is 36.7. Fasting insulin level is ordered Positive s creening for depression on PHQ-9 (Patient Health Questionnaire 9) 6096356691 24324 Z13.31 Patient scored 12 on screening today. She does feel stable with her mental health no requests or questions or concerns. Benign ess ential hypertension 3549218 I10 Stable on hydrochlor othiazide 12.5 mg daily. Blood pressure is 130/80 today Multiple sclerosis 64123 007 G35 did see Neurologis t this year at [facility], but MRI ordered and patient hasn't completed it yet so she hasn't been back to see her yet. Patient needs a refill on her baclofen therapy which is just helpful overall with her physiologi c muscular symptoms with her multiple sclerosis Long-term drug therapy 989087644 Z79.891 All routine labs are ordered fasting Cholesterol screening 27 9410830 Z13.220 Fasting lipid panel due Diabetes m ellitus screening 126786881 Z13.1 A1c screening ordered Thyroid di sorder screening 604733349 Z13.29 Routine thyroid labs ordered Smoker 26446639 F17.200 Smoking cessation encouraged and resources offered. Dyspnea 517402971 R06.00 Refer for formal PFT with and without bronchodil ator to evaluate for asthma versus COPD versus overlappin g conditions . Asthma 438421764 J45.90 9 Patient has albuterol inhaler for p.r.n. use. Questionab le history of asthma Vitamin D deficiency 347 93687 E55.9 Patient is due for updated vitamin-D lab with history of high-dose supplement ation. Refill given today Degenerati on of cervical intervertebral disc 10452575 M50.30 has seen pain management in [place] and had injections that were only temporary help. Cervical radiculopathy 21851573 M54.12 History noted Dry skin dermatitis 2600 56542 L85.3 Triamcinol one acetonide 0.5% topical cream to apply twice daily to the affected areas of the leg Numbness of hand 9493769 04 R20.0 Refer for nerve conduction study of the upper extremitie s for bilateral hand numbness discussed on review of systems Screening mammography 24 051846 Z12.31 Annual mammogram is due Renewal of prescription 557507497 Z76.0 Prescripti ons refilled Obese class II 046147383 1 17743 E66.812 BMI-36.7-d iscussed healthy diet, exercise, controllin g carbohydra celia and added sugars in the diet Health Concerns Section Related Observation LastModified by Organization Detai ls LastModified Time None Recorded Concern Status LastModified by Organization Details LastModified Time None Recorded Advance Directives Directive N: Payers Insurance Date Sequence Insurance Name Policy Number Policy Redmond Covered Member ID Redmond Member ID Guarantor Name 09/03/2024 1 [place] [id number] Bebeto Nova [id number] Jessica Watson Notes Date Note Type Note Provider Name and Address Organization Details Recorded Time 10/07/19 20 text/htm l COVID ScreeningReported bypatient.Onset/Duration of fever:no fever Associated Symptoms:cough; no cough; no shortness of breath ComorbiditiesImmunocompromised state(MS)COVID-19 Symptoms June 2019Reported bypatient.COVID-19 Signs and Symptomscough resolved; cough same; fever resolved; shortness of breath resolved Quality:productive cough;dry cough Associated Symptoms:no sputum production; no shortness of breath; no wheezing; no fever; no runny nose; no sore throat; no vomiting; no diarrhea; no body aches; no nausea; no change in mental status; no hypotension; no tachycardia 34 yo female ,spoke via phone with C/O, cough X 2 week , patient has a Hx of MS, un sure of being exposed to pos COVID patient. CLAY Milan NP Attn: [facility],[address] [place] [address], [phone], [facility] 10/07/2019 16:38:40 02/19/20 24 text/htm l Asthma F/UReported bypatient.Notes:Patient is stable on albuterol inhalerHypertensionReported bypatient.Notes:Patient takes hydrochlorothiazide 12.5 mg daily for blood pressure management Patient has a history of multiple sclerosis but is not currently seeing any neurologist or on medication. History of vitamin-D deficiency on high-dose supplement CHEN Krause Attn: [facility],[address] [place] [address], [phone], [facility] 03/01/2024 22:18:14 08/20/19 25 text/htm l Asthma F/UReported bypatient.Notes:Patient is on albuterol inhaler PRN. She does have generalized dyspnea noted even at rest no chest pain no paroxysmal dyspneaHypertensionReported bypatient.Notes:Patient takes hydrochlorothiazide 12.5 mg daily for blood pressure management Patient has a history of multiple sclerosis but is not currently seeing any neurologist or on medication. History of vitamin-D deficiency on high-dose supplement Dry skin on the lower legs patches that flare up Patient has history of chronic neck issues including degenerative disc disease of the cervical spine which radiates into the upper extremities. CHEN Krause Attn: [employer],[address] [place], [address], [place] [facility] 09/02/2024 01:33:48 OBGyn Episode No OBEpisode recorded.
--- OUTSIDE RECORDS SUMMARY | 2024-10-14 08:29 | XMS_ITS | Clinical Summary ---
Author Organization [facility] Address [address] [place] [address] Care Team Providers Care Trap Puller Name Role Phone Unavailable Primary Care Provider Unavailabl e Source Comments [facility],non-owned Affiliates and Associated Physician Practices is amultiple site organization consisting of ambulatory clinics and hospital sitesin [place], [place], [place] and [place]. This disclosure is being madepursuant to the Care Everywhere program and may not contain all information available regarding this patient. Last updated 18.[facility] Active Problems Problem Noted Date Diagnosed Date Sequential screening 11/17/2013 Encounter for supervision of other normal pregna ncy 11/17/2013 Overview (03/06/2015): Social History Tobacco Use Types Packs/Day Years Used Date Smoking Tobacco: Never Assessed Comments No Sex and Gender Information Value Date Recorded Sex Assigned at Not on file Legal Sex Female 12:41 PM CDT Gender Identity Not on file Sexual Orientation Not on file Plan of Treatment Health Maintenance Due Date Last Done Comments HIV SCREENING 02/25/2000 HEPATITIS C SCREENING 02/20/2003 DTAP/TDAP/TD VACCINES (1 - Tdap) 02/25/2004 HEPATITIS B VACCINE (1 of 3 - 19+ 3-dose series) 02/25/2004 COVID-19 VACCINE ( - 2023-2 5 season) 2023 DEPRESSION SCREENING 04/29/2024 INFLUENZA VACCINE (Season Ended) 2024 ZOSTER VACCINE (1 of 2) 2035 HIB VACCINE Aged Out No longer eligi ble based on patient's age to complete this topic HPV VACCINE Aged Out No longer eligi ble based on patient's age to complete this topic MENINGOCOCCAL (Group B) VACC INE SHARED DECISION-MAKING Aged Out No longer eligibl e based on patient's age to complete this topic MENINGOCOCCAL GROUPS A/C/Y/W VACCINE Aged Out No longer eligible b ased on patient's age to complete this topic PNEUMOCOCCAL VACCINE Aged Out No long er eligible based on patient's age to complete this topic Insurance [facility]
--- NOTE | 2024-10-14 12:45 | WPDPFTINT ---
PFT Procedure Performed PFT Procedure Performed Spirometry with Pre/Post Bronchodilator Plethysmography (Lung Vol) Diffusing Cap (DLCO) Flow Vol Loop PFT Interpretation This is a pulmonary function test with pre and post-bronchodilator spirometry, plethysmography and diffusing capacity. The test was performed and results interpreted in accordance with the 2019 and 2005 ATS/ERS Task Force guidelines respectively using the Global Lung Function Initiative-2012 reference equations. Patient demonstrated good effort and cooperation. Reproducibility criteria were met. The quality of the pre bronchodilator spirometry maneuver was Grade B and post bronchodilator spirometry maneuver was Grade B. Findings: Spirometry: The contour of 1 out of 3 pre bronchodilator tracings demonstrates a mid expiratory plateau or knee pattern and the contour of 3 out of 3 post bronchodilator expiratory flow tracings demonstrates a more pronounced mid expiratory plateau or knee pattern. The contour the inspiratory flow tracing is normal. The pre bronchodilator FVC is 3.77 L, 106% predicted. The pre bronchodilator FEV1 is 2.72 L, 93% predicted. The pre bronchodilator FEV1: FVC ratio is 72%. The post bronchodilator FVC is 3.78 L, representing no change. The post bronchodilator FEV1 is 2.71 L, representing no change. The post bronchodilator FEV1: FVC ratio is 72%. Plethysmography: The total lung capacity is 5.80 L, 118% predicted. The functional residual capacity is 2.15 L, 80% predicted. The residual volume is 2.03 L, 134% predicted. Diffusing capacity: The diffusing capacity unadjusted for hemoglobin and carboxyhemoglobin is 18.8, 80% predicted. The diffusing capacity adjusted for alveolar volume is 3.75, 78% predicted. Impression: There is a reproducible knee pattern of the expiratory flow tracing which can be a normal variant or pathologic and has been attributed to a choke point section of the bronchial tree. The normal variant is more common in younger female patients, decreases with age and is more pronounced in the post bronchodilator efforts. The pattern has also been described with kyphosis, kyphoscoliosis, central obstructing mass, and post lung transplantation. Clinical correlation is recommended. Otherwise, the spirometry is normal without evidence of an obstructive abnormality. There is no significant improvement after inhaling a single dose of albuterol. The lung volumes are normal. The diffusing capacity is normal. There are no prior studies for comparison
== END 2024-10-14 08:17 | disposition home or self-care (01) ==
LOC: ANHPFT 08:20
PROVIDERS: PCP Physician Assistant; Visit Provider Physician Assistant
DX: R06.00 Dyspnea, unspecified (principal)
CPT/HCPCS: 94060; 94726; 94729

== ENCOUNTER 2024-10-20 09:01 | Outpatient (CLI) | payer BC, SELFPAY ==
--- NOTE | 2024-10-20 11:30 | NEURO_ITS ---
Impression: # Nondiabetic,Complains of numbness of left hand. ? # Left mild Carpal Tunnel Syndrome. ? # No ulnar neuropathy. ? # Normal needle/EMG exam. ?Nerve Conduction Studies Anti Sensory Summary Table ?Stim Site NR Peak (ms) P-T Amp (?V) Site1 Site2 Delta-P (ms) Dist (cm) Moses (m/s) Left Median Anti Sensory (2-3nd Digit) Wrist ? 3.9 33.1 Wrist 2-3nd Digit 3.9 14.0 36 Wrist ? 4.3 31.6 Wrist 2-3nd Digit 3.9 14.0 36 Right Median Anti Sensory (2-3nd Digit) Wrist ? 2.6 62.1 Wrist 2-3nd Digit 2.6 14.0 54 Wrist ? 2.6 43.1 Wrist 2-3nd Digit 2.6 14.0 54 Left Radial Anti Sensory (Base 1st Digit) Wrist ? 1.9 29.3 Wrist Base 1st Digit 1.9 0.0 Right Radial Anti Sensory (Base 1st Digit) Wrist ? 1.7 53.2 Wrist Base 1st Digit 1.7 0.0 Left Ulnar Anti Sensory (5th Digit) Wrist ? 2.1 76.4 Wrist 5th Digit 2.1 14.0 67 Right Ulnar Anti Sensory (5th Digit) Wrist ? 2.1 65.4 Wrist 5th Digit 2.1 14.0 67 Motor Summary Table ?Stim Site NR Onset (ms) O-P Amp (mV) Site1 Site2 Delta-0 (ms) Dist (cm) Moses (m/s) Left Median Motor (Abd Poll Brev) Wrist ? 3.9 3.3 Elbow Wrist 4.5 26.0 58 Elbow ? 8.4 4.6 Right Median Motor (Abd Poll Brev) Wrist ? 3.0 6.1 Elbow Wrist 5.0 28.0 56 Elbow ? 8.0 4.1 Left Ulnar Motor (Abd Dig Minimi) Wrist ? 2.0 8.2 A Elbow Wrist 5.0 29.0 58 A Elbow ? 7.0 6.5 B Elbow Wrist 3.9 22.0 56 B Elbow ? 5.9 6.4 Right Ulnar Motor (Abd Dig Minimi) Wrist ? 2.0 7.8 A Elbow Wrist 5.0 29.0 58 A Elbow ? 7.0 6.9 B Elbow Wrist 3.5 20.0 57 B Elbow ? 5.5 5.6 F Wave Studies ?NR F-Lat (ms) L-R F-Lat (ms) Left Median (Mrkrs) (Abd Poll Brev) ? 27.66 0.03 Right Median (Mrkrs) (Abd Poll Brev) ? 27.62 0.03 Left Ulnar (Mrkrs) (Abd Dig Min) ? 26.48 0.55 Right Ulnar (Mrkrs) (Abd Dig Min) ? 27.03 0.55 EMG ?Side Muscle Nerve Root Ins Act Fibs Amp Dur Recrt Comment Right 1stDorInt Ulnar C8-T1 Nml Nml Nml Nml Nml Right Ext Indicis Radial (Post Int) C7-8 Nml Nml Nml Nml Nml Right Ext Digitorum Radial (Post Int) C7-8 Nml Nml Nml Nml Nml Right BrachioRad Radial C5-6 Nml Nml Nml Nml Nml Right PronatorTeres Median C6-7 Nml Nml Nml Nml Nml Right Abd Poll Brev Median C8-T1 Nml Nml Nml Nml Nml Right ABD Dig Min Ulnar C8-T1 Nml Nml Nml Nml Nml Right FlexPolLong Median (Ant Int) C7-8 Nml Nml Nml Nml Nml Right Abd Poll Long Radial (Post Int) C7-8 Nml Nml Nml Nml Nml Left 1stDorInt Ulnar C8-T1 Nml Nml Nml Nml Nml Left Ext Indicis Radial (Post Int) C7-8 Nml Nml Nml Nml Nml Left Ext Digitorum Radial (Post Int) C7-8 Nml Nml Nml Nml Nml Left BrachioRad Radial C5-6 Nml Nml Nml Nml Nml Left PronatorTeres Median C6-7 Nml Nml Nml Nml Nml Left Abd Poll Brev Median C8-T1 Nml Nml Nml Nml Nml Left ABD Dig Min Ulnar C8-T1 Nml Nml Nml Nml Nml Left FlexPolLong Median (Ant Int) C7-8 Nml Nml Nml Nml Nml Left Abd Poll Long Radial (Post Int) C7-8 Nml Nml Nml Nml Nml
== END 2024-10-20 09:02 | disposition home or self-care (01) ==
PROVIDERS: PCP Physician Assistant; Visit Provider Physician Assistant
DX: R20.2 Paresthesia of skin (principal); G56.02 Carpal tunnel syndrome, left upper limb
CPT/HCPCS: 95886; 95911

== ENCOUNTER 2024-12-15 10:16 | Outpatient (CLI) | payer BC, SELFPAY ==
--- OUTSIDE RECORDS SUMMARY | 2016-09-02 19:00 | XMS_ITS | Continuity of Care Document ---
Author Organization [facility] Address [address] [place] [address] [place] [address] Phone Care Team Providers Care Distance Learning Coordinator Name Role Phone Alan LARSEN, Isaac Unavailable Unavailable Allergies, Adverse Reactions, Alerts Substance Reaction Status Criticality No Known Allergies Active No Inform ation Medications Medication Instructions Dosage Effective Dates (start - stop) Status Comments Rebif Rebidose 8.8 mcg/0.2 mL-22 mcg/0.5 mL (6) subcutaneous pen inj. - Active ondansetron HCl 4 mg tablet take 2 tablet by oral route every 8 hours for 2 days 8 MG - Active ibuprofen 800 mg tablet - Active ZORVOLEX (unknown strength) take 1 capsule by oral route 3 times every day Not Available - Active Procedures Procedure Date Special Reports Or Forms Visual Field Examination(s) Office/outpatient Visit, Est Office/outpatient Visit, [facility] Advance Directives Directive Yes / No Effective Date File Name No Information Encounters Encounter Description Practice Location Reason(s) For Visit Diagnoses Date Provider Providers Copied on Encounter [facility], [address] [place] [address] [address], [place], [place], [id number], [place] tel:[phone] [address] [place] PIOTR Professional No Information 8 7 Alan Gray. [address] [facility] [place], [id number], [place]. tel:[phone] Referring Provider: Isaac Chu [address] [place], [address] . tel:[phone] Office/outpat ient Visit, [facility], [address], [place], [place], [id number], tel:[phone] [address] [place] Professional blurry vision (chief complaint) Retrobulbar neuritis, leftMS (multiple sclerosis) 0-201 6 Alan Gray. [address], [facility] [place], [place], [id number], . tel:[phone] Referring Provider: Isaac Chu, [address] [place], [address] . tel:[phone] Office/outpat ient Visit, [facility], [address], [place], [place], [id number], tel:[phone] [address] [place] Professional headache and foggy vision (chief complaint) Retrobulbar neuritis, left Jan-2 0-201 5 Annbecky Isaac. [address], [facility] [place], [place], [id number], . tel:[phone] Referring Provider: Isaac Chu, [address] [place], [address] . tel:[phone] Family History Family Member Type Diagnosis Age At Onset Maternal grandfather Problem (finding) Diabetes mellit us Payers Payer name Insurance type Covered green party ID Authoriza tion(s) No Information Social History Type Description Quantity Date Captured Comments Sex Female Smoking Status No Information Chief Complaint And Reason For Visit No Information Reason For Referral Reason For Referral No Information Plan Of Treatment Date Type Action Status Goal Tobacco cessation counseling completed History Of Present Illness Encounter Date Complaint History Of Prese nt Illness blurry vision The 30 year old female presents for a 3 month follow up to Retrobulbar neuritis OS. Patient OS vision is still blurry. headache and foggy vision The 29 year old female presents for WIE for constant headache over 1 week and foggy vision OS since yesterday. Pt also states OS is too painful to touch. Vision is usually more foggy in the morning. OS vision is not as foggy right now. Patient has had a constant headache and will have an MRI this Saturday. Functional Status Date Functional Assessmen t No Information Instructions Date Instruction Additional Infor nereyda Impression/Plan - Di scussed diagnosis in detail with patient. Patient was diagnosed with MS. Visual verdin OS improved. Will continue to monitor. Return to clinic in 1 year for complete exam or sooner with any problems. Follow up - Return i n 1 year with Isaac Phillips M.D. for Complete Exam. Impression/Plan - Di scussed diagnosis in detail with patient. No treatment needed at this time. Patient is scheduled for MRI next week. Will continue to monitor. Return in 3-5 weeks for optic neuritis follow up with 24-2 visual verdin or sooner with any problems. Related to Retrobulbar neuritis, unspecified eye Follow up - 3-5 week s for Optic Neuritis follow up with 24-2 visual verdin Related to Retrobulbar neuritis, unspecified eye Assessments Type Assessment Date No Information Patient Care Teams Name Effective Dates (start - stop) Status Members No Information
--- NOTE | ~2024-12-15 | XR_ITS ---
EXAMINATION: [id number] DATE: 12/15/2024 10:41 INDICATION: Cervical radiculopathy TECHNIQUE: 4 images of the cervical spine were obtained COMPARISON: None. FINDINGS: Straightening of the normal cervical lordosis. No compression fracture in the cervical spine. Moderate joint space narrowing at the C5-C6 level. Predental space is normal limits no prevertebral soft tissue swelling. Lateral dental intervals are within normal limits. IMPRESSION: 1. No compression fracture in the cervical spine. 2. Straightening of the normal cervical lordosis. 3. Moderate joint space narrowing at the C5-C6 level. If symptoms persist or worsen, consider an MRI of the cervical spine for further assessment Reviewed, dictated and finalized at location A. IMPRESSION: 1. No compression fracture in the cervical spine. 2. Straightening of the normal cervical lordosis. 3. Moderate joint space narrowing at the C5-C6 level. If symptoms persist or worsen, consider an MRI of the cervical spine for furthe r assessment
--- OUTSIDE RECORDS SUMMARY | 2024-12-15 10:44 | XMS_ITS | Clinical Summary ---
Author Organization [facility] Address [address] [place] [address] Care Team Providers Care Lumber Buyer Name Role Phone Unavailable Primary Care Provider Unavailabl e Source Comments [facility],non-owned Affiliates and Associated Physician Practices is amultiple site organization consisting of ambulatory clinics and hospital sitesin [place], [place], [place] and [place]. This disclosure is being madepursuant to the Care Everywhere program and may not contain all information available regarding this patient. Last updated 18.[facility] Active Problems Problem Noted Date Diagnosed Date [...] of 3 - 19+ 3-dose series) 02/25/2004 HPV VACCINE (1 - 3-dose SCDM series) 02/25/2012 COVID-19 VACCINE (1 - 2023-2 5 season) 2023 DEPRESSION SCREENING 04/29/2024 INFLUENZA VACCINE (#1) 2024 ZOSTER VACCINE (1 of 2) 2035 [...] patient's age to complete this topic Insurance [facility]
== END 2024-12-15 10:17 | disposition home or self-care (01) ==
PROVIDERS: PCP Physician Assistant; Visit Provider Physician Assistant
DX: M48.02 Spinal stenosis, cervical region (principal); M43.8X2 Other specified deforming dorsopathies, cervical region
CPT/HCPCS: 72040